=== PATIENT | female | born 1995 | race Caucasian/White ===

== ENCOUNTER 2016-04-25 09:45 | Emergency (ER) | payer OTHER ==
[~2016-04-25] VITALS: Ht 160 cm; Wt 55.0 kg
[~2016-04-25 09:45] MED LIST: MAGICPED SWISH-SWAL
[2016-04-25 09:48] VITALS: BP 117/70; PULSE 104; RESP 16; TEMP 98; O2SAT 98
[2016-04-25] MEDS ORDERED: AMOX875T PO (10:52)
[2016-04-25] MEDS ORDERED: FLUT1SPR9 EACH NARE (10:52)
[2016-04-25] MEDS ORDERED: BENZ100 PO (10:52)
--- NOTE | 2016-04-25 11:06 | PD ---
HPI Chief Complaint: Cold / Flu Symptoms Time Seen by Provider: 11:00 Travel History International Travel<30 days: No Contact w/Intl Traveler<30days: No Traveled to known affect area: No History of Present Illness HPI 21-year-old female presents the emergency department with a four-day history of productive cough, right sinus congestion and headache, postnasal drip, ear pain , and chest congestion. Patient denies fever, chills, or shortness of breath. He has nausea, vomiting, or other constitutional symptoms. Patient states she recently flew back from [place] where she was visiting, and her symptoms have worsened since that time. She has a history of sinus trouble in the past. She was a previous smoker which quit 2 months ago. She has no known drug allergies. PFSH Past Medical History ?: Not LMP: 04/04/16 Social History Alcohol Use: Yes Tobacco Use: Yes (patient states recently quit 2 months ago.) Substance Use: No Allergies-Medications (Allergen,Severity, Reaction): Coded Allergies: No Known Allergies (Unverified , 02/20/16) Reported Meds & Prescriptions Reported Meds & Active Scripts Active Tessalon Perles (Benzonatate) 100 Mg Cap 100 Mg PO TID PRN Flonase Allergy Relief Children Nasal [place] (Fluticasone Nasal [place]) 50 Mcg/ Act [place] 2 [place] EACH NARE DAILY 50 mcg/spray Amoxicillin 875 Mg Tab 875 Mg PO BID Magic Mouthwash Pediatric/Adult Liq (Lidocaine/Diphenhydr/Alum/Mg/Simeth) 60 Ml Susp 10 Ml SWISH-SWAL ACHS Each 5 mL contains: Diphenydramine 4.5 mg,Viscous Lidocaine 2% 10 mg, Maalox Advanced Regular Strength 2.7 ml (Aluminum hydroxide 108 mg, Magnesium hydroxide 108 mg and Simethicone 10.8 mg) Review of Systems Except as stated in HPI: all other systems reviewed are Neg General / Constitutional: No: Fever Eyes: No: Visual changes HENT: Positive: Headaches, Sore Throat, Rhinitis, Rhinorrhea, Congestion, Earache, No: Vertigo, Lightheadedness, Nosebleed, Neck Stiffness, Neck Pain, Masses, Gingival Bleeding, Dental Difficulties, Ear Discharge, Other Cardiovascular: No: Chest Pain or Discomfort Respiratory: Positive: Cough, No: Shortness of Breath, Wheezing, Sneezing, Orthopnea, Hemoptysis, Night Sweats, Pleuritic Pain Gastrointestinal: No: Abdominal Pain Genitourinary: No: Dysuria Musculoskeletal: No: Pain Skin: No Rash Neurologic: No: Weakness Psychiatric: No: Depression Endocrine: No: Polydipsia Hematologic/Lymphatic: No: Easy Bruising Physical Exam Narrative GENERAL: Patient appears mildly ill but not septic. SKIN: Warm and dry. Normal color. Normal turgor. HEAD: Atraumatic. Normocephalic. EYES: Pupils equal and round. No scleral icterus. No injection or drainage. ENT: No nasal bleeding or discharge. Mucous membranes pink and moist. TMs are dull bilaterally with mild injection. Patient is sinus tenderness over the right frontal and maxillary sinuses. Pharynx is erythematous with cobblestoning the posterior pharynx with mild erythema and lymphadenopathy. Uvula is midline. Airway is patent. NECK: Trachea midline. Neck is supple without significant lymphadenopathy. CARDIOVASCULAR: Regular rate and rhythm. No murmurs gallops or rubs. RESPIRATORY: No accessory muscle use. Clear to auscultation. Breath sounds equal bilaterally. MUSCULOSKELETAL: Extremities without clubbing, cyanosis, or edema. No obvious deformities. NEUROLOGICAL: Awake and alert. No obvious cranial nerve deficits. Motor grossly within normal limits. Five out of 5 muscle strength in the arms and legs. Normal speech. PSYCHIATRIC: Appropriate mood and affect; insight and judgment normal. Data Data Last Documented VS Vital Signs Date Time Temp Pulse Resp B/P Pulse Ox O2 Delivery O2 Flow Rate FiO2 04/25/16 09:48 98.0 104 16 117/70 98 Room Air [facility] Medical Decision Making Medical Screen Exam Complete: Yes Emergency Medical Condition: Yes Differential Diagnosis Upper respiratory infection. Otitis media. Sinusitis. Postnasal drip. Cough. Narrative Course Patient is medically stable at time of exam. Patiently treated with amoxicillin 875 twice a day 10 days. Patient is given Flonase nasal spray 2 sprays each nostril daily. Patient is given Tessalon Perles 100 mg one every 8 hours when necessary cough # 15. Patient should rest and push fluids and follow up if symptoms do not continue to improve. Diagnosis Primary Impression: Sinusitis Qualified Code: J01.00 - Acute non-recurrent maxillary sinusitis Additional Impression: PND (post-nasal drip) Patient Instructions: General Instructions, Sinusitis (ED) Additional Instructions: Patiently treated with amoxicillin 875 twice a day 10 days. Patient is given Flonase nasal spray 2 sprays each nostril daily. Patient is given Tessalon Perles 100 mg one every 8 hours when necessary cough # 15. Patient should rest and push fluids and follow up if symptoms do not continue to improve. Med/Other Pt SpecificInfo: Prescription(s) given Scripts Benzonatate (Tessalon Perles)100 Mg [id number] Mg PO TID PRN (COUGH) #15 CAP Ref 0 Prov:Dave Celestin MD 04/25/16 Fluticasone Nasal [place] (Flonase Allergy Relief Children Nasal [place])50 Mcg/Act Spray2 [place] EACH NARE DAILY #1 BOTTLE 50 mcg/spray Prov:Dave Celestin MD 04/25/16 Amoxicillin 875 Mg Sof649 Mg PO BID #20 TAB Prov:Dave Celestin MD 04/25/16 Disposition: 01 DISCHARGE HOME Condition: Stable Agustin Ojeda Apr 25, 2016 11:06
== END 2016-04-25 11:53 | disposition home or self-care (01) ==
LOC: NEPB 09:45
DX: J01.00 Acute maxillary sinusitis, unspecified (principal); R09.82 Postnasal drip; R05 Cough; H92.09 Otalgia, unspecified ear; R09.89 Other specified symptoms and signs involving the circulatory and respiratory systems; Z87.891 Personal history of nicotine dependence
CPT/HCPCS: 99283

== ENCOUNTER 2016-05-16 11:13 | Emergency (ER) | payer OTHER ==
[~2016-05-16] VITALS: Ht 160 cm; Wt 52.0 kg
[~2016-05-16 11:13] MED LIST changes: +AMOX875T PO; +BENZ100 PO; +FLUT1SPR9 EACH NARE
[2016-05-16 11:14] VITALS: BP 112/64; PULSE 90; RESP 18; TEMP 98.2; O2SAT 98
--- NOTE | 2016-05-16 13:04 | PD ---
HPI . dog bite since yesterday 530pm Chief Complaint: Bite or Sting Time Seen by Provider: 13:04 Travel History International Travel<30 days: No Contact w/Intl Traveler<30days: No Traveled to known affect area: No History of Present Illness HPI 21 yr old female with no PMH here with complaints of a dog bite to her left lateral thigh. Apparently yesterday patient was walking and her neighbor's dog bit her. She says the neighbor came outside and the dog then released her leg. She was in a [place] so she did not file a police report. The neighbor offered to clean it and wrap it up. Today she is here with complaints of left leg pain that is radiating up her thigh. She was wanting to check to make sure this leg is not affected. She is unaware if the dog is up to date on vaccines, but states the dog is a clean family dog and she doubts it has rabies. She is up to date on tetanus about 3-4 years ago. PFSH Past Medical History ?: Not LMP: 05/05/16 Social History Alcohol Use: Yes Tobacco Use: Yes (patient states recently quit 2 months ago.) Substance Use: No Allergies-Medications (Allergen,Severity, Reaction): Coded Allergies: No Known Allergies (Unverified , 05/16/16) Reported Meds & Prescriptions Reported Meds & Active Scripts Active Flonase Allergy Relief Children Nasal [place] (Fluticasone Nasal [place]) 50 Mcg/ Act [place] 2 [place] EACH NARE DAILY 50 mcg/spray Review of Systems General / Constitutional: No: Fever Eyes: No: Visual changes HENT: No: Headaches Cardiovascular: No: Chest Pain or Discomfort Respiratory: No: Shortness of Breath Gastrointestinal: No: Abdominal Pain Genitourinary: No: Dysuria Musculoskeletal: No: Pain Skin: Positive Other (dog bite to left lateral thigh), No Rash Neurologic: No: Weakness Psychiatric: No: Depression Endocrine: No: Polydipsia Hematologic/Lymphatic: No: Easy Bruising Physical Exam Narrative GENERAL: AAO x 3, no acute distress, Well-nourished, well-developed patient. SKIN: Warm and dry. No visible rashes or bruising. Left lateral thigh with two small puncture wounds (0.4 cm, 0.5 cm and very superficial), clean with minimal surrounding erythema. Tender to touch HEAD: Normocephalic and atraumatic. EYES: No scleral icterus. No injection or drainage. ENT: No nasal drainage noted. Mucous membranes pink. Airway patent. NECK: Supple, trachea midline. No JVD. CARDIOVASCULAR: Regular rate and rhythm without murmurs, gallops, or rubs. RESPIRATORY: Breath sounds equal bilaterally. No accessory muscle use. No rhonchi or rales. GASTROINTESTINAL: Abdomen soft, non-tender, nondistended. EXTREMITIES: No cyanosis or edema. left lateral thigh with dog bite. tender to touch, ambulatory, joint moves freely without any difficulty or pain BACK: Nontender without obvious deformity. No CVA tenderness. PSYCH: AAO x 3, normal affect. Data Data Last Documented VS Vital Signs Date Time Temp Pulse Resp B/P Pulse Ox O2 Delivery O2 Flow Rate FiO2 05/16/16 13:53 100 05/16/16 13:26 68 15 100/60 Room Air 05/16/16 11:14 98.2 Orders Wound Care (05/16/16 13:21) MDM Medical Decision Making Medical Screen Exam Complete: Yes Emergency Medical Condition: Yes Medical Record Reviewed: Yes Differential Diagnosis cellulitis, laceration, less likely rabies Narrative Course 21 yr old female with no PMH here with complaints of a dog bite to her left lateral thigh. Apparently yesterday patient was walking and her neighbor's dog bit her. She says the neighbor came outside and the dog then released her leg. She was in a [place] so she did not file a police report. The neighbor offered to clean it and wrap it up. Today she is here with complaints of left leg pain that is radiating up her thigh. She was wanting to check to make sure this leg is not affected. She is unaware if the dog is up to date on vaccines, but states the dog is a clean family dog and she doubts it has rabies. She is up to date on tetanus about 3-4 years ago. Patient seen and examined. Discussed with Dr. Rose. there is two small puncture wounds to the left lateral thigh, proximal to the knee very small will cover with augmentin and general wound care Patient verbalized understanding of instructions, questions were answered, and thanked me for their care. I advised them if their condition worsens, please return to the nearest emergency room for further care. Diagnosis Primary Impression: Dog bite of left thigh without complication Qualified Code: S71.152A - Dog bite of left thigh without complication, initial encounter Patient Instructions: Cellulitis (ED), General Instructions Additional Instructions: Please return to emergency department if your symptoms return or worsen. Follow up with your primary care provider. Take medications as prescribed. Look for any signs of infection. If area worsens, return to emergency department immediately. Use Tylenol or Motrin as needed for pain. Keep an eye on the neighbors dog for the next 10 days for any behaviors that may indicate rabies infection. If there are any signs of rabies, return to emergency department immediately. Med/Other Pt SpecificInfo: Prescription(s) given Disposition: 01 DISCHARGE HOME Condition: Stable Karen Huffman May 16, 2016 13:04 not for use in CrCl <30 ml/min. Prov:Karen Huffman 05/16/16 Disposition: 01 DISCHARGE HOME Condition: Stable Karen Huffman May 16, 2016 13:04 Karen Huffman May 16, 2016 13:04
[2016-05-16] MEDS ORDERED: AUGM875T PO (13:19)
[2016-05-16 13:26] VITALS: BP 100/60; PULSE 68; RESP 15; O2SAT 99
== END 2016-05-16 13:55 | disposition home or self-care (01) ==
LOC: NEPC 11:13
DX: S71.132A Puncture wound without foreign body, left thigh, initial encounter (principal); W54.0XXA Bitten by dog, initial encounter; Z87.891 Personal history of nicotine dependence; Y93.01 Activity, walking, marching and hiking; Y92.9 Unspecified place or not applicable; Y99.9 Unspecified external cause status
CPT/HCPCS: 99283

== ENCOUNTER 2016-07-29 15:41 | Emergency (ER) | payer OTHER ==
[~2016-07-29] VITALS: Ht 160 cm; Wt 54.5 kg
[~2016-07-29 15:41] MED LIST changes: -AMOX875T PO; -BENZ100 PO; -MAGICPED SWISH-SWAL
[2016-07-29 15:43] VITALS: BP 109/61; PULSE 72; RESP 16; TEMP 98.4; O2SAT 99
--- NOTE | 2016-07-29 15:58 | PD ---
Physical Exam Time Seen by Provider: 15:54 Narrative 21yo F c/o cough with worsening x2 weeks. Hx of Asthma. Reports subjective fever last night. Reports wheezing. Inhaler with relief for a little bit. Cough worse at night. Occasional SOB. Xiang hemoptysis. VS reviewed. Patient seen in triage. Awaiting bed placement. Data Data Last Documented VS Vital Signs Date Time Temp Pulse Resp B/P Pulse Ox O2 Delivery O2 Flow Rate FiO2 07/29/16 15:43 98.4 72 16 109/61 99 MDM Supervised Visit with FRANCO: Tona Boone July 29, 2016 15:57
--- NOTE | 2016-07-29 17:12 | PD ---
HPI . dry cough for some time Chief Complaint: Cold / Flu Symptoms Time Seen by Provider: 17:05 Travel History International Travel<30 days: No Contact w/Intl Traveler<30days: No Traveled to known affect area: No History of Present Illness HPI 21-year-old female here with complaints of a dry cough that she's been experiencing for over 2 weeks. Patient tells me the cough initially started off productive and now it's dry. She says that occasionally she'll have coughing fits and decided to come into the emergency department for further evaluation. She says sometimes she thinks she is wheezing. She says she may have had a fever, but never checked her temperature. She denies any wheezing recently. She denies any SOB. PFSH Past Medical History Diminished Hearing: No ?: Not LMP: 06/2016 Social History Alcohol Use: Yes Tobacco Use: Yes (patient states recently quit 2 months ago.) Substance Use: No Allergies-Medications (Allergen,Severity, Reaction): Coded Allergies: No Known Allergies (Unverified , 07/29/16) Reported Meds & Prescriptions Reported Meds & Active Scripts Active Flonase Nasal [place] (Fluticasone Nasal [place]) 50 Mcg/Act [place] 50 Mcg EACH NARE BID Flonase Allergy Relief Children Nasal [place] (Fluticasone Nasal [place]) 50 Mcg/ Act [place] 2 [place] EACH NARE DAILY 50 mcg/spray Review of Systems General / Constitutional: No: Fever Eyes: No: Visual changes HENT: No: Headaches Cardiovascular: No: Chest Pain or Discomfort Respiratory: Positive: Cough, No: Shortness of Breath Gastrointestinal: No: Abdominal Pain Genitourinary: No: Dysuria Musculoskeletal: No: Pain Skin: No Rash Neurologic: No: Weakness Psychiatric: No: Depression Endocrine: No: Polydipsia Hematologic/Lymphatic: No: Easy Bruising Physical Exam Narrative GENERAL: AAO x 3, no acute distress, Well-nourished, well-developed patient. SKIN: Warm and dry. No visible rashes or bruising. HEAD: Normocephalic and atraumatic. EYES: No scleral icterus. No injection or drainage. EOM intact, PERRLA ENT: No nasal drainage noted. Mucous membranes pink. Airway patent. Postnasal drip NECK: Supple, trachea midline. No JVD. No lymphadenopathy CARDIOVASCULAR: Regular rate and rhythm without murmurs, gallops, or rubs. RESPIRATORY: Breath sounds equal bilaterally. No accessory muscle use. No rhonchi or rales. No wheezing GASTROINTESTINAL: Visual inspection normal EXTREMITIES: No cyanosis or edema. BACK: Nontender without obvious deformity. No CVA tenderness. PSYCH: AAO x 3, normal affect. Data Data Last Documented VS Vital Signs Date Time Temp Pulse Resp B/P Pulse Ox O2 Delivery O2 Flow Rate FiO2 07/29/16 17:26 Room Air 07/29/16 15:43 98.4 72 16 109/61 99 MDM Medical Decision Making Medical Screen Exam Complete: Yes Emergency Medical Condition: Yes Medical Record Reviewed: Yes Differential Diagnosis Allergic rhinitis, less likely bronchitis, less likely pneumonia Narrative Course 21-year-old female here with complaints of a dry cough that she's been experiencing for over 2 weeks. Patient tells me the cough initially started off productive and now it's dry. She says that occasionally she'll have coughing fits and decided to come into the emergency department for further evaluation. She says sometimes she thinks she is wheezing. She says she may have had a fever, but never checked her temperature. She denies any wheezing recently. She denies any SOB. Patient seen and examined. She is in no signs of acute distress. Her cough is dry. Lungs mays are clear to auscultation bilaterally. She does have some postnasal drip. It is possible that this is a an allergic cough. I have discussed this with her. I recommend she establish and follow with primary care provider. Patient verbalized understanding of instructions, questions were answered, and thanked me for their care. I advised them if their condition worsens, please return to the nearest emergency room for further care. Diagnosis Primary Impression: Allergic rhinitis Qualified Code: J30.9 - Allergic rhinitis, unspecified allergic rhinitis trigger, unspecified rhinitis seasonality Additional Impression: PND (post-nasal drip) Patient Instructions: General Instructions Additional Instructions: Please follow-up with your primary care provider as we discussed. Med/Other Pt SpecificInfo: Prescription(s) given Scripts Fluticasone Nasal [place] (Flonase Nasal [place])50 Mcg/Act Spray50 Mcg EACH NARE BID #1 BOTTLE Ref 0 Prov:Maya Mohamud DO 07/29/16 Disposition: 01 DISCHARGE HOME Condition: Stable Karen Huffman July 29, 2016 17:12
[2016-07-29] MEDS ORDERED: FLUT1SPR5 EACH NARE (17:13)
== END 2016-07-29 17:36 | disposition home or self-care (01) ==
LOC: NEPK 15:41
DX: J30.9 Allergic rhinitis, unspecified (principal); R09.82 Postnasal drip
CPT/HCPCS: 99283

== ENCOUNTER 2017-02-06 20:33 | Emergency (ER) | payer SELFPAY ==
[~2017-02-06] VITALS: Ht 157.5 cm; Wt 57.0 kg
[~2017-02-06 20:33] MED LIST changes: +FLUT1SPR5 EACH NARE
[2017-02-06] MEDS ORDERED: IOHEXOL 350 MG/ML 10 ML VIAL (for RAD DIAG) IVCONTRAST ONE (20:34)
[2017-02-06 20:50] VITALS: BP 136/64; PULSE 80; RESP 18; TEMP 98.1; O2SAT 100
[2017-02-06] MEDS ORDERED: SODIUM CHLORIDE 0.9% FLUSH 10 ML FLUSH IV FLUSH PRN (21:00)
[2017-02-06] MEDS ORDERED: MORPHINE SULFATE 2 MG/ML INJ IV PUSH ONE (21:00)
[2017-02-06] MEDS ORDERED: SODIUM CHLOR 0.9% 1000 ML INJ 1,000 ML IV ONE (21:00)
[2017-02-06] MEDS ORDERED: ONDANSETRON HCL 4 MG/2 ML VIAL IVP ONE (21:00)
[2017-02-06] MEDS ORDERED: NITR100C4 PO (21:00)
--- NOTE | 2017-02-06 21:05 | PD ---
HPI Chief Complaint: GI Complaint Time Seen by Provider: 20:54 Travel History International Travel<30 days: No Contact w/Intl Traveler<30days: No Traveled to known affect area: No History of Present Illness HPI The patient was seen and examined in the presence of the nurse. This patient complains of abdominal pain. She has nausea and vomiting. Duration 8 days. She went to [facility] a week ago and was told she had food poisoning. Patient and mother don't believe that. She has had no diarrhea. She has not improved. Severity is moderate. No alleviating factors. No exacerbating factors. No history of surgery or abdominal problems. Denies substance abuse PFSH Past Medical History Diminished Hearing: No ?: Not LMP: 02/04/17 Social History Alcohol Use: Yes Tobacco Use: Yes (patient states recently quit 2 months ago.) Substance Use: No Allergies-Medications (Allergen,Severity, Reaction): Coded Allergies: No Known Allergies (Unverified Allergy, Unknown, 02/06/17) Reported Meds & Prescriptions Reported Meds & Active Scripts Active Phenergan (Promethazine HCl) 25 Mg Tablet 25 Mg PO Q6H PRN Tramadol (Tramadol HCl) 50 Mg Tab 50 Mg PO Q6H PRN Reported Nitrofurantoin Monohydrate Macrocrystals (Nitrofurantoin Monoh/Nitrofur Macro) 100 Mg Cap 100 Mg PO BID Review of Systems General / Constitutional: No: Fever Eyes: No: Visual changes HENT: No: Headaches Cardiovascular: No: Chest Pain or Discomfort Respiratory: No: Shortness of Breath Gastrointestinal: Positive: Nausea, Vomiting, Abdominal Pain Genitourinary: No: Dysuria Musculoskeletal: No: Pain Skin: No Rash Neurologic: No: Weakness Psychiatric: No: Depression Endocrine: No: Polydipsia Hematologic/Lymphatic: No: Easy Bruising Physical Exam Narrative GENERAL: Well-nourished, well-developed patient with nausea and abdominal pain. SKIN: Focused skin assessment reveals no rash and nodules. Skin is Warm and dry. HEAD: Atraumatic. Normocephalic. EYES: Pupils equal and round. No scleral icterus. No injection or drainage. ENT: No nasal bleeding or discharge. Mucous membranes pink and moist. NECK: Trachea midline. No JVD. CARDIOVASCULAR: Regular rate and rhythm. No murmur appreciated. RESPIRATORY: No accessory muscle use. Clear to auscultation. Breath sounds equal bilaterally. GASTROINTESTINAL: Abdomen soft, epigastrium and right upper quadrant tender without rebound or guarding, nondistended. Hepatic and splenic margins not palpable. MUSCULOSKELETAL: No obvious deformities. No clubbing. No cyanosis. No edema. NEUROLOGICAL: Awake and alert. No obvious cranial nerve deficits. Motor grossly within normal limits. Normal speech. PSYCHIATRIC: Appropriate mood and affect; insight and judgment normal. Data Data Last Documented VS Vital Signs Date Time Temp Pulse Resp B/P (MAP) Pulse Ox O2 Delivery O2 Flow Rate FiO2 02/06/17 22:20 84 16 113/71 (85) 100 Room Air 02/06/17 20:50 98.1 Orders Orders Complete Blood Count With Diff (02/06/17 21:00) Comprehensive Metabolic Panel (02/06/17 21:00) Lipase (02/06/17 21:00) Ct Abd/Pel W Iv Contrast(Rout) (02/06/17 21:00) Iv Access Insert/Monitor (02/06/17 21:00) NPO (02/06/17 21:00) Ondansetron Inj (Zofran Inj) (02/06/17 21:00) Sodium Chloride 0.9% Flush (Ns Flush) (02/06/17 21:00) Ed Urine Pregnancytest Poc (02/06/17 21:00) Sodium Chlor 0.9% 1000 Ml Inj (Ns 1000 M (02/06/17 21:00) Morphine Inj (Morphine Inj) (02/06/17 21:00) Iohexol 350 Inj (Omnipaque 350 Inj) (02/06/17 20:34) Ed Discharge Order (02/06/17 22:46) Labs Laboratory Tests Test 02/06/17 21:05 White Blood Count 8.2 TH/MM3 Red Blood Count 4.87 MIL/MM3 Hemoglobin 14.2 GM/DL Hematocrit 43.1 % Mean Corpuscular Volume 88.6 FL Mean Corpuscular Hemoglobin 29.1 PG Mean Corpuscular Hemoglobin Concent 32.9 % Red Cell Distribution Width 14.8 % Platelet Count 298 TH/MM3 Mean Platelet Volume 9.6 FL Neutrophils (%) (Auto) 72.5 % Lymphocytes (%) (Auto) 19.6 % Monocytes (%) (Auto) 5.7 % Eosinophils (%) (Auto) 1.1 % Basophils (%) (Auto) 1.1 % Neutrophils # (Auto) 5.9 TH/MM3 Lymphocytes # (Auto) 1.6 TH/MM3 Monocytes # (Auto) 0.5 TH/MM3 Eosinophils # (Auto) 0.1 TH/MM3 Basophils # (Auto) 0.1 TH/MM3 CBC Comment DIFF FINAL Differential Comment Blood Urea Nitrogen 7 MG/DL Creatinine 0.81 MG/DL Random Glucose 97 MG/DL Total Protein 7.6 GM/DL Albumin 4.0 GM/DL Calcium Level 8.7 MG/DL Alkaline Phosphatase 73 U/L Aspartate Amino Transf (AST/SGOT) 9 U/L Alanine Aminotransferase (ALT/SGPT) 20 U/L Total Bilirubin 0.4 MG/DL Sodium Level 139 MEQ/L Potassium Level 3.5 MEQ/L Chloride Level 105 MEQ/L Carbon Dioxide Level 26.2 MEQ/L Anion Gap 8 MEQ/L Estimat Glomerular Filtration Rate 89 ML/MIN Lipase 123 U/L MDM Medical Decision Making Medical Screen Exam Complete: Yes Emergency Medical Condition: Yes Medical Record Reviewed: Yes Differential Diagnosis Differential diagnosis includes pancreatitis, biliary colic, hepatitis, GERD, peptic ulcer disease. Narrative Course I have reviewed the patient's electronic medical record. IV placed CBC is normal metabolic profile is normal LFT's are normal lipase is normal Urine is negative CT of abdomen and pelvis with IV contrast was done I gave her IV Zofran and 2 millions IV morphine and 1 L normal saline IV I discussed the CT results with Dr. Bay. They are normal. No indication of the patient's pain. Nothing emergent. Stable for outpatient follow-up. On recheck she feels improved. I wrote her some Phenergan and tramadol and warned her about sedation of these things. Diagnosis Primary Impression: Abdominal pain Qualified Codes: R10.11 - Right upper quadrant pain Additional Impression: Nausea and vomiting Qualified Codes: R11.2 - Nausea with vomiting, unspecified Additional Instructions: The patient was advised to follow up with their physician and return if they worsen. The patient was warned about potential sedation for the medications they will receive on prescription. I have recommended clear liquids for 24 hours, then gradually advance as tolerated. Med/Other Pt SpecificInfo: Prescription(s) given Scripts Promethazine (Phenergan) 25 Mg Tablet 25 MG PO Q6H Y for NAUSEA OR VOMITING, #15 TAB 0 Refills Prov: Dave Celestin MD 02/06/17 Tramadol (Tramadol) 50 Mg Tab 50 MG PO Q6H Y for PAIN, #20 TAB 0 Refills Prov: Dave Celestin MD 02/06/17 Disposition: 01 DISCHARGE HOME Condition: Stable Dave Celestin MD Feb 06, 2017 21:05
[2017-02-06 21:20] LABS: AUTOMATED NEUTROPHIL # 5.9 TH/MM3 (1.8-7.7); BASOPHIL # 0.1 TH/MM3 (0-0.2); BASOPHIL % 1.1 % (0.0-2.0); EOSINOPHIL # 0.1 TH/MM3 (0-0.4); EOSINOPHIL % 1.1 % (0.0-4.0); HEMATOCRIT 43.1 % (35.0-46.0); HEMO FLAGS DIFF FINAL; LYMPH % 19.6 % (9.0-44.0); LYMPHOCYTE # 1.6 TH/MM3 (1.0-4.8); MEAN CELL VOLUME 88.6 FL (80.0-100.0); MEAN CORPUSCULAR HEMOGLOBIN 29.1 PG (27.0-34.0); MEAN CORPUSCULAR HGB CONC 32.9 % (32.0-36.0); MONO % 5.7 % (0.0-8.0); NEUT % 72.5 % (16.0-70.0); PLATELET COUNT 298 TH/MM3 (150-450); RED BLOOD COUNT 4.87 MIL/MM3 (4.00-5.30); RED CELL DISTRIBUTION WIDTH 14.8 % (11.6-17.2); WHITE BLOOD COUNT 8.2 TH/MM3 (4.0-11.0)
[2017-02-06 21:28] LABS: CHLORIDE 105 MEQ/L (98-107); POTASSIUM 3.5 MEQ/L (3.5-5.1); SODIUM (NA) 139 MEQ/L (136-145)
[2017-02-06 21:32] LABS: ANION GAP 8 MEQ/L (5-15); BICARBONATE 26.2 MEQ/L (21.0-32.0); BLOOD UREA NITROGEN 7 MG/DL (7-18)
[2017-02-06 21:35] LABS: ALT (GPT) 20 U/L (10-53); AST (GOT) 9 U/L (15-37); GLOMERULAR FILTRATION RATE 89 ML/MIN (>89)
[2017-02-06 21:36] LABS: TOTAL BILIRUBIN ADULT 0.4 MG/DL (0.2-1.0)
[2017-02-06 21:38] LABS: ALKALINE PHOSPHATASE 73 U/L (45-117)
[2017-02-06 21:55] VITALS: BP 111/67; PULSE 85; RESP 16; O2SAT 100
[2017-02-06 22:20] VITALS: BP 113/71; PULSE 84; RESP 16; O2SAT 100
--- NOTE | 2017-02-06 22:38 | RADRPT ---
EXAM DATE/TIME: 02/06/2017 22:02 [facility] COMPARISON: No previous studies available for comparison. INDICATIONS : Nausea and vomiting. Stomach pain. IV CONTRAST: 93 cc Omnipaque 350 (iohexol) IV ORAL CONTRAST: No oral contrast ingested. RADIATION DOSE: 4.86 CTDIvol (mGy) MEDICAL HISTORY : None SURGICAL HISTORY : None. ENCOUNTER: Initial ACUITY: 1 day PAIN SCALE: 7/10 LOCATION: abdomen TECHNIQUE: Volumetric scanning of the abdomen and pelvis was performed. Using automated exposure control and ad justment of the mA and/or kV according to patient size, radiation dose was kept as low as reasonably achievable to obtain optimal diagnostic quality images. DICOM format image data is available electro nically for review and comparison. FINDINGS: LOWER LUNGS: The visualized lower lungs are clear. LIVER: Homogeneous density without lesion. There is no dilation of the biliary tree. No calcified gallston es. SPLEEN: Normal size without lesion. PANCREAS: Within normal limits. KIDNEYS: Normal in size and shape. There is no mass, stone or hydronephrosis. ADRENAL GLANDS: Within normal limits. VASCULAR: There is no aortic aneurysm. BOWEL/MESENTERY: The stomach, small bowel, and colon demonstrate no acute abnormality. There is no free intraperitone al air or fluid. ABDOMINAL WALL: Within normal limits. RETROPERITONEUM: There is no lymphadenopathy. BLADDER: No wall thickening or mass. REPRODUCTIVE: Within normal limits. INGUINAL: There is no lymphadenopathy or hernia. MUSCULOSKELETAL: Within normal limits for patient age. CONCLUSION: Normal examination. Isidro Dupont MD on February 06, 2017 at 22:35 Board Certified Radiologist. This report was verified electronically.
[2017-02-06] MEDS ORDERED: PROM25TA10 PO (22:46)
[2017-02-06] MEDS ORDERED: TRAM50TA PO (22:46)
== END 2017-02-06 23:02 | disposition home or self-care (01) ==
LOC: PHED 20:33
DX: R10.11 Right upper quadrant pain (principal); R11.2 Nausea with vomiting, unspecified
CPT/HCPCS: 74177; 80053; 83690; 84703; 85025; 96361; 96374; 96375; 99285; J2270; J2405; J7030; Q9967

== ENCOUNTER 2017-08-26 13:11 | Emergency (ER) | payer SELFPAY ==
[~2017-08-26] VITALS: Ht 157.5 cm; Wt 62.0 kg
[~2017-08-26 13:11] MED LIST changes: -FLUT1SPR5 EACH NARE; -FLUT1SPR9 EACH NARE; +NITR100C4 PO; +PROM25TA10 PO; +TRAM50TA PO
[2017-08-26 13:18] VITALS: BP 127/63; PULSE 126; RESP 20; O2SAT 100
[2017-08-26] MEDS ORDERED: SODIUM CHLOR 0.9% 1000 ML INJ 1,000 ML IV SCH (13:33)
[2017-08-26] MEDS ORDERED: SODIUM CHLORIDE 0.9% FLUSH 10 ML FLUSH IV FLUSH PRN (13:45)
[2017-08-26 13:53] LABS: AUTOMATED NEUTROPHIL # 4.7 TH/MM3 (1.8-7.7); BASOPHIL # 0.1 TH/MM3 (0-0.2); BASOPHIL % 1.8 % (0.0-2.0); EOSINOPHIL # 0.2 TH/MM3 (0-0.4); EOSINOPHIL % 2.5 % (0.0-4.0); HEMATOCRIT 39.3 % (35.0-46.0); LYMPH % 30.9 % (9.0-44.0); LYMPHOCYTE # 2.5 TH/MM3 (1.0-4.8); MEAN CELL VOLUME 88.1 FL (80.0-100.0); MEAN CORPUSCULAR HEMOGLOBIN 29.1 PG (27.0-34.0); MEAN PLATELET VOLUME 9.3 FL (7.0-11.0); MONO % 5.9 % (0.0-8.0); MONOCYTE # 0.5 TH/MM3 (0-0.9); NEUT % 58.9 % (16.0-70.0); PLATELET COUNT 304 TH/MM3 (150-450); RED BLOOD COUNT 4.46 MIL/MM3 (4.00-5.30); RED CELL DISTRIBUTION WIDTH 14.4 % (11.6-17.2)
[2017-08-26 13:57] VITALS: O2SAT 100
--- NOTE | 2017-08-26 13:57 | PD ---
HPI Chief Complaint: GI Complaint Time Seen by Provider: 13:21 Travel History International Travel<30 days: No Contact w/Intl Traveler<30days: No Traveled to known affect area: No History of Present Illness HPI Patient is a 22-year-old female presenting to the emergency department for evaluation of abdominal pain, nausea, vomiting, diarrhea. Patient states his been ongoing for several years, she states she has been misdiagnosed in the past. Patient reports that she recently established with a primary doctor who performed a CT scan of her abdomen and pelvis as well as ordered blood work. Patient presented today because she is concerned about the symptoms and is unable to hold down any food. Patient also reports 8-10 loose/soft stools daily , at times she notices mucus in her stool. She then reported that she was able to drink water and Gatorade throughout the day. She denies any fever, chills, chest pain, shortness of breath. She localizes the abdominal pain to the right upper quadrant epigastric area. Of note patient has an appointment with a merry go round attendant tomorrow. Symptom onset gradual and chronic in nature. Symptoms are moderate. There are no alleviating factors. Symptoms appear exacerbated by food. Patient reports history of marijuana use but states she has not used THC since the beginning of July. Patient denies any IV drug use. She denies any chance of . PFSH Past Medical History Anxiety: Yes Diminished Hearing: No Gastrointestinal Disorders: Yes (CHRONIC N/V) ?: Not LMP: 08/14/17 : 0 Social History Alcohol Use: Yes (VERY RARE) Tobacco Use: No (1-2 CIGS PER DAY TRYING TO QUIT/ NONE PAST 2 WEEKS) Substance Use: No Allergies-Medications (Allergen,Severity, Reaction): Coded Allergies: No Known Allergies (Unverified Allergy, Unknown, 08/26/17) Reported Meds & Prescriptions Reported Meds & Active Scripts Active Phenergan (Promethazine HCl) 25 Mg Tablet 25 Mg PO Q6H PRN Reported Alprazolam 1 Mg Tab 1 Mg PO Q8H PRN Bentyl (Dicyclomine HCl) 10 Mg Cap 10 Mg PO QID Review of Systems Except as stated in HPI: all other systems reviewed are Neg General / Constitutional: No: Fever, Chills HENT: No: Headaches Cardiovascular: Positive: Tachycardia, No: Chest Pain or Discomfort Respiratory: No: Shortness of Breath Gastrointestinal: Positive: Nausea, Vomiting, Diarrhea, Abdominal Pain Genitourinary: No: Dysuria, Flank Pain, Discharge, Vaginal Bleeding Musculoskeletal: No: Myalgias Neurologic: No: Weakness, Dizziness Physical Exam Narrative GENERAL: Well-developed, well-nourished, alert female. Presenting in no acute distress. SKIN: Warm and dry. HEAD: Atraumatic. Normocephalic. EYES: Pupils equal and round. No scleral icterus. No injection or drainage. ENT: No nasal bleeding or discharge. Mucous membranes pink and moist. NECK: Trachea midline. No JVD. CARDIOVASCULAR: Tachycardic RESPIRATORY: No accessory muscle use. Clear to auscultation. Breath sounds equal bilaterally. GASTROINTESTINAL: Abdomen soft, non-tender, nondistended. Hepatic and splenic margins not palpable. No rebound, no guarding, positive bowel sounds. MUSCULOSKELETAL: Extremities without clubbing, cyanosis, or edema. No obvious deformities. NEUROLOGICAL: Awake and alert. No obvious cranial nerve deficits. Motor grossly within normal limits. Five out of 5 muscle strength in the arms and legs. Normal speech. PSYCHIATRIC: Appropriate mood and affect; insight and judgment normal. Data Data Last Documented VS Vital Signs Date Time Temp Pulse Resp B/P (MAP) Pulse Ox O2 Delivery O2 Flow Rate FiO2 08/26/17 14:19 97.8 08/26/17 13:57 100 Room Air 08/26/17:18 126 20 127/63 (84) Orders Orders Complete Blood Count With Diff (08/26/17 13:33) Comprehensive Metabolic Panel (08/26/17 13:33) Lipase (08/26/17 13:33) Urinalysis - C+S If Indicated (08/26/17 13:33) Us Abdomen Gallbladder (08/26/17 ) Iv Access Insert/Monitor (08/26/17 13:33) Ecg Monitoring (08/26/17 13:33) Oximetry (08/26/17 13:33) NPO (08/26/17 13:33) Sodium Chlor 0.9% 1000 Ml Inj (Ns 1000 M (08/26/17 13:33) Sodium Chloride 0.9% Flush (Ns Flush) (08/26/17 13:45) Electrocardiogram (08/26/17 13:33) Thyroid Stimulating Hormone (08/26/17 13:41) Free Thyroxine (T4) (08/26/17 13:41) Ed Urine Pregnancytest Poc (08/26/17 13:47) Urine Culture (08/26/17 14:06) Ceftriaxone Inj (Rocephin Inj) (08/26/17 15:00) Dicyclomine (Bentyl) (08/26/17 16:30) Labs Laboratory Tests Test 08/26/17 13:40 08/26/17 13:41 08/26/17 14:06 White Blood Count 8.0 TH/MM3 Red Blood Count 4.46 MIL/MM3 Hemoglobin 13.0 GM/DL Hematocrit 39.3 % Mean Corpuscular Volume 88.1 FL Mean Corpuscular Hemoglobin 29.1 PG Mean Corpuscular Hemoglobin Concent 33.0 % Red Cell Distribution Width 14.4 % Platelet Count 304 TH/MM3 Mean Platelet Volume 9.3 FL Neutrophils (%) (Auto) 58.9 % Lymphocytes (%) (Auto) 30.9 % Monocytes (%) (Auto) 5.9 % Eosinophils (%) (Auto) 2.5 % Basophils (%) (Auto) 1.8 % Neutrophils # (Auto) 4.7 TH/MM3 Lymphocytes # (Auto) 2.5 TH/MM3 Monocytes # (Auto) 0.5 TH/MM3 Eosinophils # (Auto) 0.2 TH/MM3 Basophils # (Auto) 0.1 TH/MM3 CBC Comment DIFF FINAL Differential Comment Blood Urea Nitrogen 8 MG/DL Creatinine 0.65 MG/DL Random Glucose 87 MG/DL Total Protein 7.0 GM/DL Albumin 3.6 GM/DL Calcium Level 8.4 MG/DL Alkaline Phosphatase 71 U/L Aspartate Amino Transf (AST/SGOT) 9 U/L Alanine Aminotransferase (ALT/SGPT) 26 U/L Total Bilirubin 0.5 MG/DL Sodium Level 142 MEQ/L Potassium Level 3.5 MEQ/L Chloride Level 107 MEQ/L Carbon Dioxide Level 24.0 MEQ/L Anion Gap 11 MEQ/L Estimat Glomerular Filtration Rate 115 ML/MIN Lipase 403 U/L Free Thyroxine 1.21 NG/DL Thyroid Stimulating Hormone 3rd Gen 0.430 uIU/ML Urine Color YELLOW Urine Turbidity HAZY Urine pH 6.0 Urine Specific [place] 1.026 Urine Protein TRACE mg/dL Urine Glucose (UA) NEG mg/dL Urine Ketones 10 mg/dL Urine Occult Blood SMALL Urine Nitrite NEG Urine Bilirubin NEG Urine Urobilinogen 2.0 MG/DL Urine Leukocyte Esterase NEG Urine RBC 5 /hpf Urine WBC 6 /hpf Urine Squamous Epithelial Cells 4 /hpf Urine Bacteria MOD /hpf Urine Mucus MOD /lpf Microscopic Urinalysis Comment CULTURE INDICATED MDM Medical Decision Making Medical Screen Exam Complete: Yes Emergency Medical Condition: Yes Medical Record Reviewed: Yes Interpretation(s) Vital Signs Date Time Temp Pulse Resp B/P (MAP) Pulse Ox O2 Delivery O2 Flow Rate FiO2 08/26/17 13:18 126 20 127/63 (84) 100 Differential Diagnosis Cholecystitis versus metabolic abnormality versus gastritis versus peptic ulcer disease versus irritable bowel syndrome versus other Narrative Course Patient is a well-appearing 22-year-old female presenting for evaluation of abdominal pain GI symptoms. She has a CT scan report as well as recent labs that were performed on August 10, 2017. The CT report shows no acute abnormality other than possible gallbladder sludge. The labs from that date were reviewed, there were no acute findings other than positive urine drug screen for THC and benzodiazepines. Abdominal exam is benign. IV access has been established, patient placed on telemetry monitoring continuous pulse oximetry. Patient is tachycardic on arrival, EKG is ordered. Labs and ultrasound of the gallbladder is ordered and pending. Patient will be given IV fluids, significant other is at bedside. Medical records reviewed from previous presentation to the emergency department. CBC and chemistry are unremarkable, urinalysis is consistent with urinary tract infection, patient was given Rocephin 1 g IV 1 dose. Ultrasound is negative. Discussed findings with patient and her significant other. Discussed option of obtaining a repeated CT scan of the abdomen and pelvis. Patient declined at this time. Patient has not vomited while in the emergency department. There are no acute findings today. Patient has an appointment with a merry go round attendant tomorrow at [facility]. They are waiting to discuss options with nurse center administrator. Patient was reassured by nurse center administrator that her procedures would be taking care of, she will follow-up tomorrow and [facility] as scheduled. She was given strict return precautions. They were reassured once again that there were no acute findings. Patient and significant other were pleased with plan of care. She will be given a prescription for nausea medication as well as Keflex for her urinary tract infection. Patient stable for discharge. Diagnosis Primary Impression: UTI (urinary tract infection) Qualified Codes: N39.0 - Urinary tract infection, site not specified; R31.9 - Hematuria, unspecified Additional Impression: Abdominal pain Qualified Codes: R10.10 - Upper abdominal pain, unspecified Referrals: House Detective 1 day As scheduled Patient Instructions: Abdominal Hysterectomy (DC), General Instructions, Irritable Bowel Syndrome (ED), Urinary Tract Infection in Women (DC) Additional Instructions: Follow-up with your merry go round attendant tomorrow as scheduled Return to emergency department immediately for any new or worsening symptoms as discussed Take medications as directed and as needed for nausea Phenergan may make you drowsy, do not drive or operate machinery while taking this medication Complete full course of antibiotics as prescribed Med/Other Pt SpecificInfo: Prescription(s) given Scripts Cephalexin (Keflex) 500 Mg Cap 500 MG PO Q12H for Infection for 7 Days, #14 CAP 0 Refills Prov: Saadia Moran 08/26/17 Promethazine (Phenergan) 25 Mg Tablet 25 MG PO Q6H Y for NAUSEA OR VOMITING, #10 TAB 0 Refills Prov: Saadia Moran 08/26/17 Disposition: 01 DISCHARGE HOME Condition: Stable Saadia Moran Aug 26, 2017 13:57
[2017-08-26] MEDS ORDERED: DICY10 PO (14:05)
[2017-08-26] MEDS ORDERED: ALPR1TAB3 PO (14:05)
[2017-08-26 14:19] VITALS: TEMP 97.8
[2017-08-26 14:26] LABS: BACTERIA, URINE MOD /hpf; BILIRUBIN, URINE NEG (NEG); BLOOD, URINE SMALL (NEG); GLUCOSE,URINE NEG (NEG); KETONE, URINE 10 mg/dL (NEG); MUCUS URINE MOD /lpf (OCC); NITRITE,URINE NEG (NEG); SQUAMOUS EPITHELIAL CELL URINE 4 /hpf (0-5); URINE COLOR YELLOW (YELLW/STRAW); URINE LEUKOCYTE ESTERASE NEG (NEG)
[2017-08-26 14:29] LABS: ALBUMIN 3.6 GM/DL (3.4-5.0); ALT (GPT) 26 U/L (10-53); AST (GOT) 9 U/L (15-37); BLOOD UREA NITROGEN 8 MG/DL (7-18); CALCIUM 8.4 MG/DL (8.5-10.1); CHLORIDE 107 MEQ/L (98-107); CREATININE 0.65 MG/DL (0.50-1.00); GLOMERULAR FILTRATION RATE 115 ML/MIN (>89); GLUCOSE,RANDOM 87 MG/DL (74-106); SODIUM (NA) 142 MEQ/L (136-145)
[2017-08-26 14:30] LABS: ALKALINE PHOSPHATASE 71 U/L (45-117); TOTAL BILIRUBIN ADULT 0.5 MG/DL (0.2-1.0)
[2017-08-26 14:46] LABS: FREE T4 1.21 NG/DL (0.76-1.46)
[2017-08-26] MEDS ORDERED: cefTRIAXone INJ 1,000 MG in SODIUM CHLORIDE 0.9% INJ 100 ML IV ONE (15:00)
--- NOTE | 2017-08-26 15:26 | RADRPT ---
EXAM DATE: 08/26/2017 3:09 PM EDT AGE/SEX: 22 years / Female INDICATIONS: Right upper quadrant pain. CLINICAL DATA: This is the patient's initial encounter. Patient reports that signs and/or symptoms h ave been present for 1 month and indicates a pain score of 3/10. MEDICAL/SURGICAL HISTORY: . Chronic nausea/vomiting. Anxiety. None. COMPARISON: No prior exams available for comparison. No external comparison. MEASUREMENTS (cm x cm x cm): Liver:__ 14.2 cm length Common Bile Duct:__ 5mm FINDINGS: Liver: Normal echotexture without focal lesion or ductal dilatation. Portal Vein: Hepatopedal flow seen in portal vein. Common Duct: No intraluminal mass or stone visualized. Gallbladder: Demonstrates no wall thickening or pericholecystic fluid. No stones visualized. Pancreas: The visualized portions are within normal limits Right Kidney: No mass or hydronephrosis Other: None. CONCLUSION: 1. Unremarkable study. Electronically signed by: Sugar Maldonado MD 08/26/2017 3:25 PM EDT
[2017-08-26] MEDS ORDERED: DICYCLOMINE HCL 20 MG TAB PO ONE (16:30)
[2017-08-26] MEDS ORDERED: PROM25TA10 PO (17:15)
[2017-08-26] MEDS ORDERED: CEPH-460 PO (17:15)
--- NOTE | 2017-08-26 19:41 | PD ---
Physical Exam Date Seen by Provider: Aug 26, 2017 Time Seen by Provider: 14:30 Narrative I, Dr. Lau, have reviewed the advance practice practitioner's documentation and am in agreement, met with the patient face to face, made the diagnosis, and the medical decision making was done by me. *My assessment and Findings: Patient seen and evaluated with PA, please see PA notes for further details. She has been having ongoing problems with abdominal pains intermittently, states nausea, vomiting, and is scheduled to see GI tomorrow. On exam, abdomen is fairly nontender. Vital signs are stable in the ER. She did not have any further vomiting episodes here in the ER, had been given nausea medications. She had a CAT scan a few weeks ago which showed some gallbladder sludging. Transabdominal ultrasound was fairly unremarkable. Lipase is mildly elevated which is suspect to be causing some of her symptoms. At this point, plan would be to release her with symptomatic relief for the discomfort and close follow-up tomorrow with GI. Return for worsening in symptoms as necessary. The plan has been discussed with her and she states understanding. Laboratory Tests Test 08/26/17 13:40 08/26/17 13:41 08/26/17 14:06 Calcium Level 8.4 MG/DL (8.5-10.1) Aspartate Amino Transf (AST/SGOT) 9 U/L (15-37) Lipase 403 U/L (73-393) Urine Turbidity HAZY (CLEAR) Urine Ketones 10 mg/dL (NEG) Urine Occult Blood SMALL (NEG) Urine RBC 5 /hpf (0-3) Urine WBC 6 /hpf (0-5) Urine Bacteria MOD /hpf (NONE) Urine Mucus MOD /lpf (OCC) Last 24 hours Impressions Gall Bladder Ultrasound 08/26/17 0000 Signed Impressions: CONCLUSION: 1. Unremarkable study. Data Data Last Documented VS Vital Signs Date Time Temp Pulse Resp B/P (MAP) Pulse Ox O2 Delivery O2 Flow Rate FiO2 08/26/17 14:19 97.8 08/26/17 13:57 100 Room Air 08/26/17 13:18 126 20 127/63 (84) Orders Orders Complete Blood Count With Diff (08/26/17 13:33) Comprehensive Metabolic Panel (08/26/17 13:33) Lipase (08/26/17 13:33) Urinalysis - C+S If Indicated (08/26/17 13:33) Us Abdomen Gallbladder (08/26/17 ) Iv Access Insert/Monitor (08/26/17 13:33) Ecg Monitoring (08/26/17 13:33) Oximetry (08/26/17 13:33) NPO (08/26/17 13:33) Sodium Chlor 0.9% 1000 Ml Inj (Ns 1000 M (08/26/17 13:33) Sodium Chloride 0.9% Flush (Ns Flush) (08/26/17 13:45) Electrocardiogram (08/26/17 13:33) Thyroid Stimulating Hormone (08/26/17 13:41) Free Thyroxine (T4) (08/26/17 13:41) Ed Urine Pregnancytest Poc (08/26/17 13:47) Urine Culture (08/26/17 14:06) Ceftriaxone Inj (Rocephin Inj) (08/26/17 15:00) Dicyclomine (Bentyl) (08/26/17 16:30) Ed Discharge Order (08/26/17 17:15) Labs Laboratory Tests Test 08/26/17 13:40 08/26/17 13:41 08/26/17 14:06 White Blood Count 8.0 TH/MM3 Red Blood Count 4.46 MIL/MM3 Hemoglobin 13.0 GM/DL Hematocrit 39.3 % Mean Corpuscular Volume 88.1 FL Mean Corpuscular Hemoglobin 29.1 PG Mean Corpuscular Hemoglobin Concent 33.0 % Red Cell Distribution Width 14.4 % Platelet Count 304 TH/MM3 Mean Platelet Volume 9.3 FL Neutrophils (%) (Auto) 58.9 % Lymphocytes (%) (Auto) 30.9 % Monocytes (%) (Auto) 5.9 % Eosinophils (%) (Auto) 2.5 % Basophils (%) (Auto) 1.8 % Neutrophils # (Auto) 4.7 TH/MM3 Lymphocytes # (Auto) 2.5 TH/MM3 Monocytes # (Auto) 0.5 TH/MM3 Eosinophils # (Auto) 0.2 TH/MM3 Basophils # (Auto) 0.1 TH/MM3 CBC Comment DIFF FINAL Differential Comment Blood Urea Nitrogen 8 MG/DL Creatinine 0.65 MG/DL Random Glucose 87 MG/DL Total Protein 7.0 GM/DL Albumin 3.6 GM/DL Calcium Level 8.4 MG/DL Alkaline Phosphatase 71 U/L Aspartate Amino Transf (AST/SGOT) 9 U/L Alanine Aminotransferase (ALT/SGPT) 26 U/L Total Bilirubin 0.5 MG/DL Sodium Level 142 MEQ/L Potassium Level 3.5 MEQ/L Chloride Level 107 MEQ/L Carbon Dioxide Level 24.0 MEQ/L Anion Gap 11 MEQ/L Estimat Glomerular Filtration Rate 115 ML/MIN Lipase 403 U/L Free Thyroxine 1.21 NG/DL Thyroid Stimulating Hormone 3rd Gen 0.430 uIU/ML Urine Color YELLOW Urine Turbidity HAZY Urine pH 6.0 Urine Specific [place] 1.026 Urine Protein TRACE mg/dL Urine Glucose (UA) NEG mg/dL Urine Ketones 10 mg/dL Urine Occult Blood SMALL Urine Nitrite NEG Urine Bilirubin NEG Urine Urobilinogen 2.0 MG/DL Urine Leukocyte Esterase NEG Urine RBC 5 /hpf Urine WBC 6 /hpf Urine Squamous Epithelial Cells 4 /hpf Urine Bacteria MOD /hpf Urine Mucus MOD /lpf Microscopic Urinalysis Comment CULTURE INDICATED MDM Medical Record Reviewed: Yes Supervised Visit with FRANCO: Yes Diagnosis Primary Impression: UTI (urinary tract infection) Additional Impression: Abdominal pain Referrals: Security Patrol Driver 1 day As scheduled Patient Instructions: General Instructions, Abdominal Hysterectomy (DC), Irritable Bowel Syndrome (ED), Urinary Tract Infection in Women (DC) Departure Forms: Tests/Procedures Additional Instruction: Follow-up with your machine coil assembler tomorrow as scheduled Return to emergency department immediately for any new or worsening symptoms as discussed Take medications as directed and as needed for nausea Phenergan may make you drowsy, do not drive or operate machinery while taking this medication Complete full course of antibiotics as prescribed Scripts Cephalexin (Keflex) 500 Mg Cap 500 MG PO Q12H for Infection for 7 Days, #14 CAP 0 Refills Prov: Saadia Moran 08/26/17 Promethazine (Phenergan) 25 Mg Tablet 25 MG PO Q6H Y for NAUSEA OR VOMITING, #10 TAB 0 Refills Prov: Saadia Moran 08/26/17 Disposition: 01 DISCHARGE HOME Condition: Stable SoonMadhavi guan MD Aug 26, 2017 19:41
--- NOTE | 2017-09-01 07:12 | EKG ---
Date Performed: 08/26/2017 Time Performed: 13:52:21 PTAGE: 22 years EKG: Sinus rhythm POSSIBLE LEFT ATRIAL ENLARGEMENT BORDERLINE ECG NO PREVIOUS TRACING DOCTOR: Chas Lane Interpretating Date/Time 09/01/2017 07:11:51
== END 2017-08-26 17:40 | disposition home or self-care (01) ==
LOC: NEPC 13:11
DX: N39.0 Urinary tract infection, site not specified (principal); R11.2 Nausea with vomiting, unspecified; F41.9 Anxiety disorder, unspecified
CPT/HCPCS: 76705; 80053; 81001; 83690; 84439; 84443; 84703; 85025; 87086; 93005; 96361; 96374; 99285; J0696; J7030

== ENCOUNTER 2017-08-28 11:37 | Observation (INO) | payer SELFPAY ==
[~2017-08-28] VITALS: Ht 172.7 cm; Wt 60.0 kg
[~2017-08-28 11:37] MED LIST changes: +ALPR1TAB3 PO; +CEPH-460 PO; +DICY10 PO; -NITR100C4 PO; -TRAM50TA PO
[2017-08-28 11:47] VITALS: BP 116/55; PULSE 138; RESP 18; TEMP 97.1; O2SAT 99
[2017-08-28] MEDS ORDERED: BACL10TA PO (12:14)
[2017-08-28] MEDS ORDERED: BUSP1TAB PO (12:14)
[2017-08-28] MEDS ORDERED: AMOX500C PO (12:14)
[2017-08-28] MEDS ORDERED: ZOFR4TAB3 SL (12:14)
[2017-08-28] MEDS ORDERED: KETOROLAC TROMETHAMINE 30 MG/ML (IVP) VIAL IV PUSH ONE (12:15)
[2017-08-28] MEDS ORDERED: FAMOTIDINE 20 MG/2 ML VIAL IV PUSH ONE (12:15)
[2017-08-28] MEDS ORDERED: SODIUM CHLOR 0.9% 1000 ML INJ 1,000 ML IV ONE (12:15)
[2017-08-28] MEDS ORDERED: SODIUM CHLORIDE 0.9% FLUSH 10 ML FLUSH IV FLUSH PRN ×2 (12:15→15:30)
[2017-08-28] MEDS ORDERED: diphenhydrAMINE HCL 50 MG/ML VIAL IV PUSH ONE (12:15)
[2017-08-28] MEDS ORDERED: METOCLOPRAMIDE HCL 10 MG/2 ML VIAL IV PUSH ONE (12:15)
--- NOTE | 2017-08-28 12:22 | PD ---
HPI Chief Complaint: GI Complaint Time Seen by Provider: 11:59 Travel History International Travel<30 days: No Contact w/Intl Traveler<30days: No Traveled to known affect area: No History of Present Illness HPI 22-year-old female complains of abdominal pain, nausea vomiting. Patient states that the symptoms started this morning. Patient has history of recurrent abdominal pain with nausea vomiting since she was 9-year-old. Patient has been seen in emergency room and several areas in the past for that. Patient was not referred to wire spiral binder in the past. Patient was seen in emergency room at [facility] recently and CT scan of the abdomen and pelvis showed sludge in the gallbladder. patient was seen in emergency room at [place] 2 days ago and gallbladder ultrasound was normal. Patient has mild elevated lipase. Patient was discharged home with instructed to follow-up with wire spiral binder. Patient was seen by advanced wire spiral binder center yesterday and was advised to have endoscopy and blood test done. Patient states that the something with this morning patient was advised to go to emergency room for evaluation. Patient states that she has severe diffuse abdominal pain. Patient unable to tell me the quality or the quantity of the abdominal pain. Patient has nausea vomiting diarrhea also. Patient reportedly does not have any fever at home. On a scale of 1-10 the pain is a 10. PFSH Past Medical History Anxiety: Yes Diminished Hearing: No Gastrointestinal Disorders: Yes (CHRONIC N/V) ?: Not : 0 Social History Alcohol Use: Yes (VERY RARE) Tobacco Use: No (1-2 CIGS PER DAY TRYING TO QUIT/ NONE PAST 2 WEEKS) Substance Use: No Allergies-Medications (Allergen,Severity, Reaction): Coded Allergies: No Known Allergies (Unverified Allergy, Unknown, 08/28/17) Reported Meds & Prescriptions Reported Meds & Active Scripts Active Phenergan (Promethazine HCl) 25 Mg Tablet 25 Mg PO Q6H PRN Reported Baclofen 10 Mg Tab 10 Mg PO TID PRN Zofran Odt (Ondansetron Odt) 4 Mg Tab 4 Mg SL Q6HR PRN Amoxicillin 500 Mg Cap 500 Mg PO BID Buspirone (Buspirone HCl) 7.5 Mg Tab 7.5 Mg PO BID Bentyl (Dicyclomine HCl) 10 Mg Cap 10 Mg PO QID Review of Systems General / Constitutional: No: Fever Eyes: No: Visual changes HENT: No: Headaches Cardiovascular: No: Chest Pain or Discomfort Respiratory: No: Shortness of Breath Gastrointestinal: Positive: Nausea, Vomiting, Diarrhea, Abdominal Pain Genitourinary: No: Dysuria Musculoskeletal: No: Pain Skin: No Rash Neurologic: No: Weakness Psychiatric: No: Depression Endocrine: No: Polydipsia Hematologic/Lymphatic: No: Easy Bruising Physical Exam Narrative GENERAL: Well-nourished, well-developed patient. SKIN: Focused skin assessment warm/dry. HEAD: Normocephalic. EYES: No scleral icterus. No injection or drainage. NECK: Supple, trachea midline. No JVD or lymphadenopathy. CARDIOVASCULAR: Regular rate and rhythm without murmurs, gallops, or rubs. RESPIRATORY: Breath sounds equal bilaterally. No accessory muscle use. GASTROINTESTINAL: Abdomen soft, nondistended. Patient has moderate diffuse tenderness over the abdomen. No rebound tenderness. No mass. MUSCULOSKELETAL: No cyanosis, or edema. BACK: Nontender without obvious deformity. No CVA tenderness. Data Data Last Documented VS Vital Signs Date Time Temp Pulse Resp B/P (MAP) Pulse Ox O2 Delivery O2 Flow Rate FiO2 08/28/17 12:26 84 16 98 08/28/17 11:47 97.1 116/55 (75) Orders Orders Sodium Chlor 0.9% 1000 Ml Inj (Ns 1000 M (08/28/17 12:15) Metoclopramide Inj (Reglan Inj) (08/28/17 12:15) Diphenhydramine Inj (Benadryl Inj) (08/28/17 12:15) Ketorolac Inj (Toradol Inj) (08/28/17 12:15) Beta Hcg (Quant/Titer) (08/28/17 12:14) Complete Blood Count With Diff (08/28/17 12:14) Comprehensive Metabolic Panel (08/28/17 12:14) Lipase (08/28/17 12:14) Urinalysis - C+S If Indicated (08/28/17 12:14) Iv Access Insert/Monitor (08/28/17 12:14) Ecg Monitoring (08/28/17 12:14) Oximetry (08/28/17 12:14) Sodium Chloride 0.9% Flush (Ns Flush) (08/28/17 12:15) Famotidine Inj (Pepcid Inj) (08/28/17 12:15) C-Reactive Protein (Crp) (08/28/17 12:14) [place] Sedimentation Rate (08/28/17 12:14) Thyroid Stimulating Hormone (08/28/17 12:14) Labs Laboratory Tests Test 08/28/17 12:15 08/28/17 12:20 White Blood Count 9.2 TH/MM3 Red Blood Count 4.77 MIL/MM3 Hemoglobin 14.6 GM/DL Hematocrit 42.3 % Mean Corpuscular Volume 88.5 FL Mean Corpuscular Hemoglobin 30.5 PG Mean Corpuscular Hemoglobin Concent 34.5 % Red Cell Distribution Width 14.4 % Platelet Count 320 TH/MM3 Mean Platelet Volume 10.4 FL Neutrophils (%) (Auto) 81.4 % Lymphocytes (%) (Auto) 14.3 % Monocytes (%) (Auto) 2.8 % Eosinophils (%) (Auto) 0.2 % Basophils (%) (Auto) 1.3 % Neutrophils # (Auto) 7.5 TH/MM3 Lymphocytes # (Auto) 1.3 TH/MM3 Monocytes # (Auto) 0.3 TH/MM3 Eosinophils # (Auto) 0.0 TH/MM3 Basophils # (Auto) 0.1 TH/MM3 CBC Comment DIFF FINAL Differential Comment Erythrocyte Sedimentation Rate 2 mm/hr Blood Urea Nitrogen 8 MG/DL Creatinine 1.04 MG/DL Random Glucose 109 MG/DL Total Protein 8.3 GM/DL Albumin 4.5 GM/DL Calcium Level 9.6 MG/DL Alkaline Phosphatase 80 U/L Aspartate Amino Transf (AST/SGOT) 23 U/L Alanine Aminotransferase (ALT/SGPT) 29 U/L Total Bilirubin 0.4 MG/DL Sodium Level 140 MEQ/L Potassium Level 3.7 MEQ/L Chloride Level 107 MEQ/L Carbon Dioxide Level 19.5 MEQ/L Anion Gap 14 MEQ/L Estimat Glomerular Filtration Rate 67 ML/MIN C-Reactive Protein LESS THAN 0.29 MG/DL Lipase 119 U/L Thyroid Stimulating Hormone 3rd Gen 0.404 uIU/ML Human Chorionic Gonadotropin, Quant LESS THAN 1 MIU/ML Urine Color YELLOW Urine Turbidity CLEAR Urine pH 8.0 Urine Specific [place] 1.033 Urine Protein 30 mg/dL Urine Glucose (UA) NEG mg/dL Urine Ketones 150 mg/dL Urine Occult Blood TRACE Urine Nitrite NEG Urine Bilirubin NEG Urine Urobilinogen 2.0 MG/DL Urine Leukocyte Esterase NEG Urine RBC 2 /hpf Urine WBC 1 /hpf Urine Squamous Epithelial Cells 1 /hpf Urine Mucus MOD /lpf Microscopic Urinalysis Comment CULT NOT INDICATED MDM Medical Decision Making Medical Screen Exam Complete: Yes Emergency Medical Condition: Yes Interpretation(s) 1408 p.m. CBC within normal limits. Sed rate is normal. Bicarb 19.5. Creatinine 1.04. GFR 67. C-reactive protein less than 0.29. TSH normal. Beta hCG negative. UA is negative. Differential Diagnosis Differential diagnosis including cyclic nausea vomiting, gastroparesis, gastritis, PUD, pancreatitis, cholecystitis, colitis, UTI, pyelonephritis, nephrolithiasis. Narrative Course 22-year-old female with acute exacerbation of recurrent abdominal pain, nausea vomiting diarrhea. Symptoms started when she was 9-year-old. Normal saline solution 1 L IV bolus. Pepcid 20 mg IV. Toradol 30 mg IV. Reglan 10 mg IV. Benadryl 25 mg IV. Diagnosis Primary Impression: Intractable abdominal pain Additional Impression: Cyclical vomiting with nausea Qualified Codes: G43.A1 - Cyclical vomiting, intractable Admitting Information Admitting Physician Requests: Admit Jaret Eagle MD Aug 28, 2017 12:22
[2017-08-28 12:26] VITALS: PULSE 84; RESP 16; O2SAT 98
[2017-08-28 13:03] LABS: AUTOMATED NEUTROPHIL # 7.5 TH/MM3 (1.8-7.7); BASOPHIL # 0.1 TH/MM3 (0-0.2); BASOPHIL % 1.3 % (0.0-2.0); EOSINOPHIL % 0.2 % (0.0-4.0); HEMATOCRIT 42.3 % (35.0-46.0); HEMOGLOBIN 14.6 GM/DL (11.6-15.3); LYMPH % 14.3 % (9.0-44.0); LYMPHOCYTE # 1.3 TH/MM3 (1.0-4.8); MEAN CELL VOLUME 88.5 FL (80.0-100.0); MEAN CORPUSCULAR HEMOGLOBIN 30.5 PG (27.0-34.0); MEAN CORPUSCULAR HGB CONC 34.5 % (32.0-36.0); MEAN PLATELET VOLUME 10.4 FL (7.0-11.0); MONO % 2.8 % (0.0-8.0); MONOCYTE # 0.3 TH/MM3 (0-0.9); NEUT % 81.4 % (16.0-70.0); PLATELET COUNT 320 TH/MM3 (150-450); RED BLOOD COUNT 4.77 MIL/MM3 (4.00-5.30); RED CELL DISTRIBUTION WIDTH 14.4 % (11.6-17.2); WHITE BLOOD COUNT 9.2 TH/MM3 (4.0-11.0)
[2017-08-28 13:07] LABS: BILIRUBIN, URINE NEG (NEG); BLOOD, URINE TRACE (NEG); GLUCOSE,URINE NEG (NEG); KETONE, URINE 150 mg/dL (NEG); MUCUS URINE MOD /lpf (OCC); NITRITE,URINE NEG (NEG); SQUAMOUS EPITHELIAL CELL URINE 1 /hpf (0-5); URINE COLOR YELLOW (YELLW/STRAW); URINE LEUKOCYTE ESTERASE NEG (NEG)
[2017-08-28 13:50] LABS: ALBUMIN 4.5 GM/DL (3.4-5.0); ALKALINE PHOSPHATASE 80 U/L (45-117); ALT (GPT) 29 U/L (10-53); AST (GOT) 23 U/L (15-37); BICARBONATE 19.5 MEQ/L (21.0-32.0); BLOOD UREA NITROGEN 8 MG/DL (7-18); C-REACTIVE PROTEIN LESS THAN 0.29 MG/DL (0.00-0.30); CALCIUM 9.6 MG/DL (8.5-10.1); CHLORIDE 107 MEQ/L (98-107); CREATININE 1.04 MG/DL (0.50-1.00); GLOMERULAR FILTRATION RATE 67 ML/MIN (>89); GLUCOSE,RANDOM 109 MG/DL (74-106); SODIUM (NA) 140 MEQ/L (136-145); TOTAL BILIRUBIN ADULT 0.4 MG/DL (0.2-1.0); TOTAL PROTEIN 8.3 GM/DL (6.4-8.2)
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
[2017-08-28] MEDS ORDERED: METOCLOPRAMIDE HCL 10 MG/2 ML VIAL IV PUSH PRN (15:30)
[2017-08-28] MEDS ORDERED: MAGNESIUM HYDROXIDE SUSP 30 ML CUP PO PRN (15:30)
[2017-08-28] MEDS ORDERED: NALOXONE HCL 0.4 MG/ML AMP IV PUSH PRN ×2 (15:30→15:45)
[2017-08-28] MEDS ORDERED: SENNOSIDES 8.6 MG TAB PO PRN (15:30)
[2017-08-28] MEDS ORDERED: PROMETHAZINE INJ 25 MG/ML VIAL IM PRN (15:45)
[2017-08-28 17:05] VITALS: BP 113/67; PULSE 67; RESP 16; TEMP 98.5; O2SAT 100
[2017-08-28] MEDS: MORPHINE SULFATE 4 MG/ML INJ IV PRN ×3 (17:08→23:03)
[2017-08-28] MEDS: PANTOPRAZOLE SODIUM 40 MG VIAL IV PUSH SCH (17:08)
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
--- NOTE | 2017-08-28 17:55 | RADRPT ---
EXAM DATE: 08/28/2017 5:53 PM EDT AGE/SEX: 22 years / Female INDICATIONS: Chest pain. CLINICAL DATA: This is the patient's initial encounter. Patient reports that signs and symptoms have been present for 1 day and indicates a pain score of 0/10. MEDICAL/SURGICAL HISTORY: Asthma. . COMPARISON: No prior exams available for comparison. FINDINGS: The lungs are clear without infiltrate, nodule, or mass. There is no appreciable pleural effusion for technique. Heart and mediastinum are unremarkable. CONCLUSION: No acute cardiopulmonary disease. Electronically signed by: Sugar Maldonado MD 08/28/2017 5:54 PM EDT
[2017-08-28] MEDS: METOCLOPRAMIDE HCL 10 MG/2 ML VIAL IV PUSH SCH ×2 (18:21→23:05)
[2017-08-28] MEDS: SODIUM CHLOR 0.9% 1000 ML INJ 1,000 ML IV SCH (18:21)
--- NOTE | 2017-08-28 18:34 | RADRPT ---
EXAM DATE: 08/28/2017 6:13 PM EDT AGE/SEX: 22 years / Female INDICATIONS: Abdominal pain. CLINICAL DATA: This is the patient's initial encounter. Patient reports that signs and symptoms have been present for 1 month and indicates a pain score of 7/10. MEDICAL/SURGICAL HISTORY: None. . Elbow sx. COMPARISON: PO, CT ABDOMEN & PELVIS W CONTRAST, 02/06/2017. . TECHNIQUE: Multiplanar, multisequence images of the abdomen were obtained without contrast including dedicated cholangiographic images. FINDINGS: Liver: The liver is homogeneous and normal in signal intensity with no focal defects. Intrahepatic Bile Ducts: There is no intrahepatic biliary ductal dilatation. Common Bile Duct: The common bile duct is normal in caliber, it measures 5 mm. No filling defects or obstructing lesions are identified. Gallbladder: The gallbladder is normal with no evidence for cholelithiasis, gallbladder wall thicken ing, or pericholecystic fluid. Pancreas: The pancreas appears normal in signal with no focal parenchymal abnormalities. The pancrea tic duct is normal in caliber with no filling defects, or obstructing lesions identified. CONCLUSION: Negative MRCP. Electronically signed by: Isidro Dupont MD 08/28/2017 6:33 PM EDT
[2017-08-28] MEDS: DICYCLOMINE HCL 10 MG CAP PO SCH ×2 (19:55→23:02)
[2017-08-28] MEDS: SODIUM CHLORIDE 0.9% FLUSH 10 ML FLUSH IV FLUSH SCH (19:56)
[2017-08-28] MEDS: DOCUSATE SODIUM 50 MG/SENNA 8.6 MG TAB PO SCH (19:56)
[2017-08-28 20:00] VITALS: BP 115/67; PULSE 79; RESP 17; TEMP 101; O2SAT 100
[2017-08-28] MEDS: KETOROLAC TROMETHAMINE 30 MG/ML (IVP) VIAL IV PUSH SCH (22:01)
[2017-08-28 22:18] LABS: CHOLESTEROL 120 MG/DL (120-200); TRIGLYCERIDES 34 MG/DL (42-150)
[2017-08-28 22:21] LABS: CHOLESTEROL/ HDL RATIO 2.28 RATIO; HDL CHOLESTEROL 52.6 MG/DL (40.0-60.0); LDL CHOLESTEROL 61 MG/DL (0-99); TROPONIN I LESS THAN 0.02 NG/ML (0.02-0.05)
[2017-08-28 22:39] LABS: ACETAMINOPHEN LESS THAN 2.0 MCG/ML (10.0-30.0)
[2017-08-29] VITALS (8 sets, daily range): BP systolic 89–112; BP diastolic 50–67; PULSE 56–73; RESP 16–20; TEMP 97.6–98.2; O2SAT 96–100
[2017-08-29] MEDS: SODIUM CHLOR 0.9% 1000 ML INJ 1,000 ML IV SCH ×3 (02:22→21:04)
[2017-08-29] MEDS: MORPHINE SULFATE 4 MG/ML INJ IV PRN ×4 (02:30→21:00)
[2017-08-29] MEDS: METOCLOPRAMIDE HCL 10 MG/2 ML VIAL IV PUSH SCH ×4 (05:51→22:48)
[2017-08-29] MEDS: KETOROLAC TROMETHAMINE 30 MG/ML (IVP) VIAL IV PUSH SCH ×3 (05:52→21:02)
[2017-08-29 06:28] LABS: AUTOMATED NEUTROPHIL # 7.3 TH/MM3 (1.8-7.7); BASOPHIL # 0.1 TH/MM3 (0-0.2); BASOPHIL % 1.1 % (0.0-2.0); EOSINOPHIL # 0.1 TH/MM3 (0-0.4); EOSINOPHIL % 0.7 % (0.0-4.0); HEMATOCRIT 34.7 % (35.0-46.0); HEMOGLOBIN 11.5 GM/DL (11.6-15.3); LYMPH % 27.1 % (9.0-44.0); LYMPHOCYTE # 3.1 TH/MM3 (1.0-4.8); MEAN CELL VOLUME 88.1 FL (80.0-100.0); MEAN CORPUSCULAR HEMOGLOBIN 29.2 PG (27.0-34.0); MEAN CORPUSCULAR HGB CONC 33.1 % (32.0-36.0); MEAN PLATELET VOLUME 10.2 FL (7.0-11.0); MONO % 8.3 % (0.0-8.0); NEUT % 62.8 % (16.0-70.0); PLATELET COUNT 243 TH/MM3 (150-450); RED BLOOD COUNT 3.94 MIL/MM3 (4.00-5.30); RED CELL DISTRIBUTION WIDTH 14.5 % (11.6-17.2); WHITE BLOOD COUNT 11.6 TH/MM3 (4.0-11.0)
[2017-08-29 07:35] LABS: ALBUMIN 3.3 GM/DL (3.4-5.0); ALKALINE PHOSPHATASE 60 U/L (45-117); ALT (GPT) 21 U/L (10-53); AST (GOT) 15 U/L (15-37); BICARBONATE 23.1 MEQ/L (21.0-32.0); BLOOD UREA NITROGEN 8 MG/DL (7-18); CALCIUM 8.2 MG/DL (8.5-10.1); CHLORIDE 110 MEQ/L (98-107); CREATININE 0.61 MG/DL (0.50-1.00); GLOMERULAR FILTRATION RATE 124 ML/MIN (>89); GLUCOSE,RANDOM 80 MG/DL (74-106); SODIUM (NA) 143 MEQ/L (136-145); TOTAL BILIRUBIN ADULT 0.4 MG/DL (0.2-1.0); TOTAL PROTEIN 6.2 GM/DL (6.4-8.2)
[2017-08-29] MEDS: SODIUM CHLORIDE 0.9% FLUSH 10 ML FLUSH IV FLUSH SCH ×2 (09:00→21:00)
[2017-08-29] MEDS: DICYCLOMINE HCL 10 MG CAP PO SCH ×4 (10:08→21:02)
[2017-08-29] MEDS: DOCUSATE SODIUM 50 MG/SENNA 8.6 MG TAB PO SCH ×2 (10:08→21:00)
[2017-08-29 11:14] LABS: AUTOMATED NEUTROPHIL # 5.7 TH/MM3 (1.8-7.7); BASOPHIL # 0.2 TH/MM3 (0-0.2); BASOPHIL % 2.7 % (0.0-2.0); EOSINOPHIL # 0.1 TH/MM3 (0-0.4); EOSINOPHIL % 1.5 % (0.0-4.0); LYMPH % 25.6 % (9.0-44.0); LYMPHOCYTE # 2.4 TH/MM3 (1.0-4.8); MEAN CELL VOLUME 89.1 FL (80.0-100.0); MEAN CORPUSCULAR HEMOGLOBIN 29.7 PG (27.0-34.0); MEAN CORPUSCULAR HGB CONC 33.4 % (32.0-36.0); MEAN PLATELET VOLUME 10.2 FL (7.0-11.0); MONO % 8.5 % (0.0-8.0); MONOCYTE # 0.8 TH/MM3 (0-0.9); NEUT % 61.7 % (16.0-70.0); PLATELET COUNT 240 TH/MM3 (150-450); RED BLOOD COUNT 4.04 MIL/MM3 (4.00-5.30); RED CELL DISTRIBUTION WIDTH 14.7 % (11.6-17.2); WHITE BLOOD COUNT 9.3 TH/MM3 (4.0-11.0)
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
[2017-08-29 13:41] LABS: HEMOGLOBIN A1C 5.2 % (4.3-6.0)
--- NOTE | 2017-08-29 14:39 | EKG ---
Date Performed: 08/29/2017 Time Performed: 12:05:46 PTAGE: 22 years EKG: SINUS BRADYCARDIA WITH MARKED SINUS ARRHYTHMIA MODERATE T-WAVE ABNORMALITY, CONSIDER ANTERI OR ISCHEMIA ABNORMAL ECG PREVIOUS TRACING : 08/28/2017 19.59 compared with previous EKG sinus bradycardia is new DOCTOR: Chas Lane Interpretating Date/Time 08/29/2017 14:38:46
--- NOTE | 2017-08-29 14:59 | EKG ---
Date Performed: 08/28/2017 Time Performed: 19:59:08 PTAGE: 22 years EKG: Sinus rhythm WITH MARKED SINUS ARRHYTHMIA BORDERLINE ECG PREVIOUS TRACING : 08/26/2017 13.52 Since the previous tracing, no significant change noted DOCTOR: Chas Lane Interpretating Date/Time 08/29/2017 14:58:13
[2017-08-29] MEDS ORDERED: MAGNESIUM CITRATE SOLN 300 ML BTL PO ONE ×2 (15:15→19:00)
[2017-08-29] MEDS ORDERED: BISACODYL EC 5 MG TABEC PO ONE (15:15)
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
[2017-08-29] MEDS ORDERED: REGL5TAB PO (15:22)
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
--- NOTE | 2017-08-29 15:39 | HHI.GIFU ---
Subjective Remarks Patient is resting in the bed and dozing appears more comfortable No acute nausea and vomiting for now Reviewed results of MRCP negative No acute complaints of abdominal pain (Alison Cooper) Objective Vitals I&O Vital Signs Date Time Temp Pulse Resp B/P (MAP) Pulse Ox O2 Delivery O2 Flow Rate FiO2 08/29/17 11:29 97.6 56 16 89/53 (65) 98 08/29/17 11:29 Room Air 08/29/17 09:38 99 08/29/17 08:00 97.8 73 20 100/58 (72) 99 08/29/17 06:45 18 08/29/17 04:10 21 08/29/17 04:00 97.8 65 18 94/50 (65) 99 08/29/17 02:57 16 08/29/17 00:01 98.2 62 17 95/53 (67) 99 08/28/17 22:25 Room Air 08/28/17 20:00 101.0 79 17 115/67 (83) 100 08/28/17 17:05 98.5 67 16 113/67 (82) 100 I/O 08/28/17 08/28/17 08/28/17 08/29/17 08/29/17 08/29/17 07:00 15:00 23:00 07:00 15:00 23:00 Intake Total 1000 ml 1120 ml 120 ml Balance 1000 ml 1120 ml 120 ml Intake Oral 120 ml 120 ml IV Total 1000 ml 1000 ml # Voids 2 Laboratory Laboratory Tests Test 08/28/17 21:15 08/29/17 05:40 08/29/17 10:52 Hemoglobin A1c 5.2 Troponin I LESS THAN 0.02 Triglycerides Level 34 Cholesterol Level 120 LDL Cholesterol 61 HDL Cholesterol 52.6 Cholesterol/HDL Ratio 2.28 Acetaminophen Level LESS THAN 2.0 White Blood Count 11.6 9.3 Red Blood Count 3.94 4.04 Hemoglobin 11.5 12.0 Hematocrit 34.7 36.0 Mean Corpuscular Volume 88.1 89.1 Mean Corpuscular Hemoglobin 29.2 29.7 Mean Corpuscular Hemoglobin Concent 33.1 33.4 Red Cell Distribution Width 14.5 14.7 Platelet Count 243 240 Mean Platelet Volume 10.2 10.2 Neutrophils (%) (Auto) 62.8 61.7 Lymphocytes (%) (Auto) 27.1 25.6 Monocytes (%) (Auto) 8.3 8.5 Eosinophils (%) (Auto) 0.7 1.5 Basophils (%) (Auto) 1.1 2.7 Neutrophils # (Auto) 7.3 5.7 Lymphocytes # (Auto) 3.1 2.4 Monocytes # (Auto) 1.0 0.8 Eosinophils # (Auto) 0.1 0.1 Basophils # (Auto) 0.1 0.2 CBC Comment DIFF FINAL DIFF FINAL Differential Comment Blood Urea Nitrogen 8 Creatinine 0.61 Random Glucose 80 Total Protein 6.2 Albumin 3.3 Calcium Level 8.2 Alkaline Phosphatase 60 Aspartate Amino Transf (AST/SGOT) 15 Alanine Aminotransferase (ALT/SGPT) 21 Total Bilirubin 0.4 Sodium Level 143 Potassium Level 3.5 Chloride Level 110 Carbon Dioxide Level 23.1 Anion Gap 10 Estimat Glomerular Filtration Rate 124 Lipase 336 Date/Time Source Procedure Growth Status 08/28/17 21:20 Blood Peripheral Aerobic Blood Culture - Preliminary NO GROWTH IN 1 DAY Resulted 08/28/17 21:20 Blood Peripheral Anaerobic Blood Culture - Preliminary NO GROWTH IN 1 DAY Resulted Physical Exam HEENT: Pupils round and reactive to light; normocephalic; atraumatic; no jaundice. Throat is clear. NECK: Neck is supple, no JVD, no lymphadenopathy. CHEST: Chest is clear to auscultation and percussion. CARDIAC: Regular rate and rhythm with no murmur gallop or rubs. ABDOMEN: Soft, nondistended, nontender to light palpation; no hepatosplenomegaly; bowel sounds are present in all four quadrants. EXTREMITIES: No clubbing, cyanosis, or edema. SKIN: Normal; no rash; no jaundice. [employer]: Answers questions appropriately (Alison Cooper) Assessment and Plan Plan In retractable nausea and vomiting Hematemesis Melena stools CT on 526 according to the record showed sludge and possible gallstones, ultrasound done on 6 negative gallbladder 22-year-old slim female with in intractable nausea and vomiting greater than 20 times a day she states worsening over the past 3 weeks but symptoms have been going on for at least a year. Patient notes 5 pound weight loss since 2017. Current hemoglobin 14.6, normal liver labs, patient does note marijuana use back in July 2017. Patient could be having symptoms of hyper emesis secondary to her marijuana use. Outpatient EGD colonoscopy was scheduled for Thursday but will consider doing as inpatient after results of MRCP are complete. 08/29/2017 patient is resting in the bed much more comfortable today no obvious nausea or vomiting or abdominal pain. MRCP unremarkable. Discussed test of EGD and colonoscopy Thursday a.m. Plan Clear liquids trial Anti-medics Monitor labs Supportive care EGD and colonoscopy, Thursday a.m. Mag citrate 2 doses and Dulcolax suppositories prep, 11/30/2017 Patient was seen per myself and Dr. Rolon this note was written on his behalf (Alison Cooper) Physician Comments Seen and examined, will schedule EGD and Colonoscopy Thursday and start bowel prep Thursday. Further recommendations to follow. (Luzma Rolon MD) Alison Cooper Aug 29, 2017 15:39 Luzma Rolon MD Aug 30, 2017 12:19
[2017-08-29] MEDS: PANTOPRAZOLE SODIUM 40 MG VIAL IV PUSH SCH (17:17)
[2017-08-29] MEDS: ALPRAZolam 0.25 MG TAB PO PRN (22:46)
[2017-08-30 00:25] VITALS: BP 104/59; PULSE 62; RESP 16; TEMP 97.7; O2SAT 98
[2017-08-30] MEDS: MORPHINE SULFATE 4 MG/ML INJ IV PRN ×7 (00:26→23:33)
[2017-08-30] MEDS: METOCLOPRAMIDE HCL 10 MG/2 ML VIAL IV PUSH SCH ×3 (06:00→16:34)
[2017-08-30] MEDS: KETOROLAC TROMETHAMINE 30 MG/ML (IVP) VIAL IV PUSH SCH ×3 (06:00→21:10)
[2017-08-30] MEDS: ALPRAZolam 0.25 MG TAB PO PRN ×2 (06:42→19:37)
[2017-08-30 08:00] VITALS: BP 109/56; PULSE 64; RESP 16; TEMP 97.9; O2SAT 100
[2017-08-30 08:31] LABS: HEMATOCRIT 32.9 % (35.0-46.0); HEMOGLOBIN 11.1 GM/DL (11.6-15.3); MEAN CELL VOLUME 88.2 FL (80.0-100.0); MEAN CORPUSCULAR HEMOGLOBIN 29.7 PG (27.0-34.0); MEAN CORPUSCULAR HGB CONC 33.7 % (32.0-36.0); MEAN PLATELET VOLUME 9.7 FL (7.0-11.0); PLATELET COUNT 221 TH/MM3 (150-450); RED BLOOD COUNT 3.73 MIL/MM3 (4.00-5.30); RED CELL DISTRIBUTION WIDTH 14.3 % (11.6-17.2); WHITE BLOOD COUNT 7.6 TH/MM3 (4.0-11.0)
[2017-08-30 08:57] LABS: BICARBONATE 24.4 MEQ/L (21.0-32.0); CALCIUM 7.8 MG/DL (8.5-10.1); CREATININE 0.48 MG/DL (0.50-1.00)
[2017-08-30] MEDS: SODIUM CHLORIDE 0.9% FLUSH 10 ML FLUSH IV FLUSH SCH ×2 (09:00→21:00)
[2017-08-30] MEDS: DOCUSATE SODIUM 50 MG/SENNA 8.6 MG TAB PO SCH ×2 (09:43→21:00)
[2017-08-30] MEDS: DICYCLOMINE HCL 10 MG CAP PO SCH ×4 (09:43→21:10)
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
[2017-08-30 12:00] VITALS: BP 126/69; PULSE 68; RESP 16; TEMP 98.2; O2SAT 100
[2017-08-30] MEDS: SODIUM CHLOR 0.9% 1000 ML INJ 1,000 ML IV SCH ×2 (13:00→15:33)
--- NOTE | 2017-08-30 14:36 | HHI.GIFU ---
Subjective Remarks Patient is resting in the bed tolerating her clear liquids without vomiting. Patient does still note some nausea but is more controlled with medications Patient set up for EGD colonoscopy tomorrow Hemoglobin 11.1 and stable (Alison Cooper) Objective Vitals I&O Vital Signs Date Time Temp Pulse Resp B/P (MAP) Pulse Ox O2 Delivery O2 Flow Rate FiO2 08/30/17 08:00 97.9 64 16 109/56 (73) 100 08/30/17 00:25 97.7 62 16 104/59 (74) 98 08/29/17 20:15 98.1 58 16 112/67 (82) 100 08/29/17 18:24 96 21 08/29/17 16:00 97.8 56 19 95/57 (70) 96 I/O 08/29/17 08/29/17 08/29/17 08/30/17 08/30/17 08/30/17 07:00 15:00 23:00 07:00 15:00 23:00 Intake Total 1120 ml 120 ml 720 ml Balance 1120 ml 120 ml 720 ml Intake Oral 120 ml 120 ml 720 ml IV Total 1000 ml # Voids 2 3 # Bowel Movements 0 Laboratory Laboratory Tests Test 08/30/17 08:15 White Blood Count 7.6 Red Blood Count 3.73 Hemoglobin 11.1 Hematocrit 32.9 Mean Corpuscular Volume 88.2 Mean Corpuscular Hemoglobin 29.7 Mean Corpuscular Hemoglobin Concent 33.7 Red Cell Distribution Width 14.3 Platelet Count 221 Mean Platelet Volume 9.7 Blood Urea Nitrogen 6 Creatinine 0.48 Random Glucose 68 Calcium Level 7.8 Sodium Level 141 Potassium Level 3.3 Chloride Level 108 Carbon Dioxide Level 24.4 Anion Gap 9 Estimat Glomerular Filtration Rate 163 Date/Time Source Procedure Growth Status 08/28/17 21:20 Blood Peripheral Aerobic Blood Culture - Preliminary NO GROWTH IN 2 DAYS Resulted 08/28/17 21:20 Blood Peripheral Anaerobic Blood Culture - Preliminary NO GROWTH IN 2 DAYS Resulted Imaging Last Impressions Chest X-Ray 08/28/17 1524 Signed Impressions: CONCLUSION: No acute cardiopulmonary disease. Cholangiopancreatography MRI 08/28/17 0000 Signed Impressions: CONCLUSION: Negative MRCP. Physical Exam HEENT: Slim body build, normocephalic; atraumatic; no jaundice. NECK: Neck is supple, no JVD, no lymphadenopathy. CHEST: Chest is clear to auscultation and percussion. CARDIAC: Regular rate and rhythm with no murmur gallop or rubs. ABDOMEN: Flat, soft, nondistended, nontender to light palpation; no hepatosplenomegaly; bowel sounds are present in all four quadrants. EXTREMITIES: No clubbing, cyanosis, or edema. SKIN: Normal; no rash; no jaundice. [employer]: Answers questions appropriately (Alison Cooper) Assessment and Plan Plan In retractable nausea and vomiting Hematemesis Melena stools CT on 52 according to the record showed sludge and possible gallstones, ultrasound done on 08 26 negative gallbladder 22-year-old slim female with in intractable nausea and vomiting greater than 20 times a day she states worsening over the past 3 weeks but symptoms have been going on for at least a year. Patient notes 5 pound weight loss since 2017. Current hemoglobin 14.6, normal liver labs, patient does note marijuana use back in July 2017. Patient could be having symptoms of hyper emesis secondary to her marijuana use. Outpatient EGD colonoscopy was scheduled for Thursday but will consider doing as inpatient after results of MRCP are complete. 08/29/2017 patient is resting in the bed much more comfortable today no obvious nausea or vomiting or abdominal pain. MRCP unremarkable. Discussed test of EGD and colonoscopy Thursday a.m. 08/30/2017 patient is resting in the bed and able to keep down clear liquids today without vomiting. We discussed EGD and colonoscopy in the morning in the process as well as her prep today and the need to do good prep for test tomorrow. Patient is tolerating nausea and vomiting episodes much better in the past 48 hours with multiple anti-medics. Once EGD and colonoscopy is done, further recommendations to follow for the source of her nausea. Current hemoglobin stable at 11.1. Plan Clear liquids Anti-medics Monitor labs Encouraged activity in the room and being up out of the bed Supportive care EGD and colonoscopy, Thursday a.m. Mag citrate 2 doses and Dulcolax suppositories prep, Patient was seen per myself and Dr. Rolon this note was written on his behalf (Alison Cooper) Physician Comments Agree with above assessment and plan. EGD and Colonoscopy tomorrow, will start bowel prep. (Luzma Rolon MD) Alison Cooper Aug 30, 2017 14:36 Lzuma Rolon MD Aug 30, 2017 14:48
[2017-08-30] MEDS ORDERED: MAGNESIUM CITRATE SOLN 300 ML BTL PO ONE ×3 (15:00→18:00)
[2017-08-30] MEDS ORDERED: BISACODYL EC 5 MG TABEC PO ONE (15:00)
[2017-08-30 16:00] VITALS: BP 102/72; PULSE 56; RESP 16; TEMP 98.5; O2SAT 97
[2017-08-30] MEDS: PANTOPRAZOLE SODIUM 40 MG VIAL IV PUSH SCH (16:33)
[2017-08-30 20:05] VITALS: BP 103/58; PULSE 75; RESP 16; TEMP 98.3; O2SAT 99
[2017-08-30 23:40] VITALS: BP 102/54; PULSE 55; RESP 17; TEMP 98.2; O2SAT 98
[2017-08-30] MEDS ORDERED: POVIDONE IODINE 5% (ANTISEPSIS KIT) 4 APPLICATIONS EACH NARE PRN (23:45)
[2017-08-30] MEDS ORDERED: LACTATED RINGER'S 1000 ML IV PRN (23:45)
[2017-08-30] MEDS ORDERED: SODIUM CHLORID 0.9% 500 ML IV PRN (23:45)
[2017-08-30] MEDS ORDERED: METOPROLOL TARTRATE 25 MG TAB PO PRN (23:45)
[2017-08-30] MEDS ORDERED: CHLORHEXIDINE GLUCONATE 2 % 1 PACK (2 CLOTHS) TOPICAL PRN (23:45)
[2017-08-31] MEDS: METOCLOPRAMIDE HCL 10 MG/2 ML VIAL IV PUSH SCH ×4 (00:18→13:30)
[2017-08-31] MEDS: SODIUM CHLOR 0.9% 1000 ML INJ 1,000 ML IV SCH ×2 (06:24→14:00)
[2017-08-31] MEDS: KETOROLAC TROMETHAMINE 30 MG/ML (IVP) VIAL IV PUSH SCH ×2 (06:24→13:29)
[2017-08-31 08:00] VITALS: BP 106/57; PULSE 77; RESP 17; TEMP 98.5; O2SAT 98
[2017-08-31] MEDS: DICYCLOMINE HCL 10 MG CAP PO SCH ×2 (08:17→13:29)
[2017-08-31] MEDS: DOCUSATE SODIUM 50 MG/SENNA 8.6 MG TAB PO SCH (08:17)
[2017-08-31] MEDS: SODIUM CHLORIDE 0.9% FLUSH 10 ML FLUSH IV FLUSH SCH (08:19)
[2017-08-31] MEDS: MORPHINE SULFATE 4 MG/ML INJ IV PRN (08:22)
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
[2017-08-31 10:51] LABS: HEMATOCRIT 36.8 % (35.0-46.0); HEMOGLOBIN 12.3 GM/DL (11.6-15.3); MEAN CELL VOLUME 88.5 FL (80.0-100.0); MEAN CORPUSCULAR HEMOGLOBIN 29.6 PG (27.0-34.0); MEAN CORPUSCULAR HGB CONC 33.5 % (32.0-36.0); MEAN PLATELET VOLUME 10.4 FL (7.0-11.0); PLATELET COUNT 240 TH/MM3 (150-450); RED BLOOD COUNT 4.16 MIL/MM3 (4.00-5.30); WHITE BLOOD COUNT 6.5 TH/MM3 (4.0-11.0)
[2017-08-31 10:58] LABS: INTERNATIONAL NORMALIZED RATIO 1.3 RATIO; PROTHROMBIN TIME - PATIENT 12.7 SEC (9.8-11.6)
[2017-08-31 11:03] LABS: BICARBONATE 18.6 MEQ/L (21.0-32.0); CALCIUM 7.8 MG/DL (8.5-10.1); CREATININE 0.5 MG/DL (0.50-1.00)
[2017-08-31] MEDS ORDERED: PROPOFOL 200 MG/20 ML AMP IV ONE (12:00)
[2017-08-31] MEDS ORDERED: PROPOFOL 200 MG/20 ML AMP ONE (12:15)
--- NOTE | 2017-08-31 12:25 | GIPROC ---
[facility] [address] [facility]. [facility], [address] EGD PROCEDURE REPORT EXAM DATE: 08/31/2017 PATIENT NAME: Hilda Lopez MR #: [id number] BIRTHDATE: 1995 ATTENDING: Luzma Rolon MD ORDER #: [id number] [employer] OPERATOR: Jennifer Shirley and Judy Manuel STATUS: inpatient INDICATIONS: The patient is a 22 yr old female here for an EGD due to abdominal pain PROCEDURE PERFORMED: EGD w/ biopsy MEDICATIONS: None and Per Anesthesia. TOPICAL ANESTHETIC: none CONSENT: The patient understands the risks and benefits of the procedure and understands that these risks include, but are not limited to: sedation, allergic reaction, infection, perforation and/or bleeding. Alternative means of evaluation and treatment include, among others: physical exam, x-rays, and/or surgical intervention. The patient elects to proceed with this endoscopic procedure. medical equipment was checked for proper function. Hand hygiene and appropriate measures for infection prevention was taken. After the risks, benefits and alternatives of the procedure were thoroughly explained, Informed consent was verified, confirmed and timeout was successfully executed by the treatment team. The patient was anesthetized with topical anesthesia and the EC-[id number] (Pedi C) endoscope was introduced through the mouth and advanced to the second portion of the duodenum. Retroflexion was performed and was normal The gastroscope was then slowly withdrawn and removed. ESOPHAGUS: The mucosa of the esophagus appeared normal. STOMACH: The mucosa of the stomach appeared normal. DUODENUM: The duodenal mucosa appeared normal in the duodenal bulb, 2nd part duodenum, and 3rd part duodenum. Cold forcep biopsies were taken in the second portion. ADVERSE EVENTS: There were no complications. IMPRESSIONS: 1. The esophagus appeared normal 2. The mucosa of the stomach appeared normal 3. Normal duodenal mucosa in the duodenal bulb, 2nd part duodenum, and 3rd part duodenum, biopsies taken to role out celiac. 4. Retroflexion was performed and was normal RECOMMENDATIONS: Await biopsy results. Biopsy results will not be ready for 7-10 days. If you don't hear from us in two weeks, call our office for biopsy results. PATIENT CONDITION: stable DISPOSITION: Observation REPEAT EXAM: NONE Luzma Rolon MD eSigned: Luzma Rolon MD 08/31/2017 12:24 PM cc: PATIENT NAME: John Hilda Foster MR#: [id number]
--- NOTE | 2017-08-31 12:31 | GIPROC ---
[facility] [address] [facility]. [facility], [address] COLONOSCOPY PROCEDURE REPORT EXAM DATE: 08/31/2017 PATIENT NAME: Hilda Lopez MR #: [id number] BIRTHDATE: 1995 ENDOSCOPIST: Luzma Rolon MD ORDER #: [id number] STOREROOM SUPERVISOR: Jennifer Shirley and Judy Manuel STATUS: inpatient INDICATIONS: The patient is a 22 yr old female here for a colonoscopy due to abdominal pain PROCEDURE PERFORMED: Colonoscopy, diagnostic MEDICATIONS: None and Per Anesthesia. PREP QUALITY: good PREP TYPE:Magnesium Citrate ESTIMATED BLOOD LOSS: None CONSENT: The patient understands the risks and benefits of the procedure and understands that these risks include, but are not limited to: sedation, allergic reaction, infection, perforation and/or bleeding. Alternative means of evaluation and treatment include, among others: physical exam, x-rays, and/or surgical intervention. The patient elects to proceed with this endoscopic procedure. medical equipment was checked for proper function. Hand hygiene and appropriate measures for infection prevention was taken. After the risks, benefits and alternatives of the procedure were thoroughly explained, Informed consent was verified, confirmed and timeout was successfully executed by the treatment team. A digital exam revealed no abnormalities of the rectum The Pentax EC-[id number] endoscope was introduced through the anus and advanced to the cecum, which was identified by both the appendix and ileocecal valve. The instrument was then slowly withdrawn as the colon was fully examined. COLON FINDINGS: The colonic mucosa appeared normal throughout the entire examined colon and in the terminal ileum. Retroflexed views revealed no abnormalities The scope was then completely withdrawn from the patient and the procedure terminated. PROCEDURE WITHDRAWAL TIME:10minutes ADVERSE EVENTS: There were no complications. IMPRESSIONS: 1. The colonic mucosa appeared normal throughout the entire examined colon and in the terminal ileum 2. Retroflexed views revealed no abnormalities RECOMMENDATIONS: No treatment RECALL: NONE Luzma Rolon MD eSigned: Luzma Rolon MD 08/31/2017 12:30 PM cc:
[2017-08-31] MEDS ORDERED: ALPR.25 PO (14:24)
[2017-08-31 15:59] VITALS: BP 165/77; PULSE 63; RESP 18; TEMP 98.1; O2SAT 100
[2017-08-31] MEDS: PANTOPRAZOLE SODIUM 40 MG VIAL IV PUSH SCH (16:22)
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
== END 2017-08-31 17:36 | disposition home or self-care (01) ==
LOC: NEPD 11:37 → NEDA 14:37 → INTOOBSV 14:37 → N06B 16:33
PROVIDERS: ADMIT Family Medicine; ATTEND Family Medicine
DX: R10.84 Generalized abdominal pain (principal); G43.A1 Cyclical vomiting, in migraine, intractable; K59.00 Constipation, unspecified; R19.7 Diarrhea, unspecified; R50.9 Fever, unspecified; R55 Syncope and collapse; K92.1 Melena; K92.0 Hematemesis; F43.12 Post-traumatic stress disorder, chronic; R74.8 Abnormal levels of other serum enzymes; R00.1 Bradycardia, unspecified; R94.31 Abnormal electrocardiogram [ECG] [EKG]; F41.9 Anxiety disorder, unspecified; F12.90 Cannabis use, unspecified, uncomplicated; Z62.810 Personal history of physical and sexual abuse in childhood
CPT/HCPCS: 71046; 74181; 76377; 80048; 80053; 80061; 80307; 81001; 82272; 83036; 83690; 84443; 84484; 84702; 85025; 85027; 85610; 85652; 85730; 86140; 87040; 87205; 87328; 87329; 87493; 87506; 88305; 93005; 96361; 96372; 96374; 96375; 96376; 97161; 99285; C9113; G0378; G0481; G8987; G8988; J1200; J1885; J2270; J2550; J2765; J7030; J7120